=== PATIENT | male | born 1940 | race Caucasian/White ===

== ENCOUNTER → 2016-05-29 | Outpatient (CLI) | payer MEDICARE, BC ==
[~2016-05-29] MED LIST: AMLO5TAB2 PO; ASPI1TAB PO; ATEN25TA PO; COSO1SOL3 OS; IBUP200C PO; LISI-538 PO; OMEP20CA3 PO; SIMV20TA2 PO; TRAV04OPD OS; ZYRT10TA2 PO
[2016-05-29 10:58] LABS: MEAN CORPUSCULAR HEMOGLOBIN 27.8 pg (27.0-33.0); MEAN CORPUSCULAR HGB CONC 31.8 g/dl (32.0-36.5); MEAN CORPUSCULAR VOLUME 87.5 fl (80.0-96.0); RED CELL DISTRIBUTION WIDTH 14.1 % (11.5-14.5); WHITE BLOOD COUNT 8.9 K/mm3 (4.0-10.0)
[2016-05-29 11:05] LABS: INR 0.92
--- NOTE | 2016-05-29 11:09 | ECGEPIP ---
Stationary ECG Study [facility] Test Date: 2016-05-29 Pat Name: KESHAWN MEDINA Department: Room: - Gender: M Lending Manager: : 1940 Requested By: Calista Parker Order Number: [id number] Reading MD: Aiyana Ruiz Measurements Intervals [place] Rate: 57 P: 54 MS: 213 QRS: -2 QRSD: 92 T: 56 QT: 394 QTc: 384 Interpretive Statements SINUS BRADYCARDIA WITH FIRST DEGREE AV BLOCK SEPTAL MYOCARDIAL INFARCTION, OF INDETERMINATE AGE ANT ST ELEV 2ND TO RECENT INJURY, ANEURYSM OR OTHER NO PRIOR Electronically Signed On 05-29-2016 11:08:55 EST by Aiyana Ruiz
[2016-05-29 11:30] LABS: ALBUMIN 3.7 GM/DL (3.2-5.2); ALBUMIN/GLOBULIN RATIO 0.7 (1.00-1.93); BILIRUBIN,TOTAL 0.5 MG/DL (0.2-1.0); CALCIUM LEVEL 9.4 MG/DL (8.8-10.2); CREATININE FOR GFR 1.27 MG/DL (0.70-1.30); GLOMERULAR FILTRATION RATE 58.4 (>42); POTASSIUM SERUM 4.6 MEQ/L (3.5-5.1)
--- NOTE | 2016-05-29 12:02 | REP ---
Chest two views HISTORY: Hypertension Comparison: None Linear densities are present in the lower lobes consistent with atelectasis or scar. The heart is normal in size. The pulmonary vasculature is normal in appearance. The bony structure is intact. IMPRESSION: Bibasilar atelectasis or scar. Signed by Celestino Hudson MD 05/29/2016 11:53 A
== END ==
LOC: M ADMPAT 09:07
PROVIDERS: ATTEND Orthopaedic Surgery
DX: Z01.818 Encounter for other preprocedural examination (principal); M17.12 Unilateral primary osteoarthritis, left knee; I10 Essential (primary) hypertension; K21.9 Gastro-esophageal reflux disease without esophagitis; E78.00 Pure hypercholesterolemia, unspecified

== ENCOUNTER 2016-06-15 05:45 | Inpatient (IN) | payer MEDICARE, BC ==
[2016-05-29 10:35] VITALS: BP 144/84
--- NOTE | 2016-06-05 10:22 | HPE ---
DATE OF ADMISSION: 06/15/2016 ADMITTING DIAGNOSIS: Left knee pain and stiffness. HISTORY: This is a pleasant 76-year-old male patient with progressively worsening left knee pain and stiffness. He has failed to improve with conservative management. He has pain with weightbearing activities and activities of daily living and also bothers his sleeping. He has tried conservative management to include injections with failure to have any significant improvement. He has elected for surgery for his continued symptoms. He has consented for a left total knee arthroplasty. X-rays of his knee notable for end-stage degenerative changes of the left knee [id number] in the medial compartment. ALLERGIES: No known drug allergies. CURRENT MEDICATIONS: - Motrin 200 mg as needed (He will discontinue that 7 days prior to surgery.) - aspirin 81 mg one tablet as needed once per day (He will discontinue that also 5-7 days prior to surgery.) - Travatan 0.004% eyedrops (He will bring that to the hospital.) - that is one drop in his left eye once per day - Cosopt 23.3/6.8 one drop two times a day in each eye - Prilosec 20 mg one tablet once per day - Zocor 20 mg one tablet at bedtime - amlodipine 5 mg one tablet once per day - Lisinopril 20 mg one tablet once per day - atenolol 25 mg one tablet every day MEDICAL CONDITIONS: Include osteoarthritis of the left knee, hypertension, elevated cholesterol, gastric reflux disease. SURGICAL HISTORY: He had no prior surgeries. FAMILY HISTORY: Noncontributory. SOCIAL HISTORY: He does continue to smoke. He is again reminded to stop smoking. He has alcohol occasionally. He is retired. REVIEW OF SYSTEMS: Denies fever or chills. Denies chest pain, shortness breath, or cough. Denies difficulty breathing. Denies abdominal pain. Denies nausea or vomiting. Notes persistent pain in his left knee with weightbearing activities. PHYSICAL EXAMINATION: Today, reveals a well-nourished, well-developed, alert male patient. He walks with a limping gait. He favors his left side. Examination of the left knee reveals skin to be intact. There is irritability on knee range of motion on examination. Patella grind is positive. There is well-healed prior surgical scars. He is able to appreciate light touch. There is a well-perfused left lower extremity. There is a notable flexion contracture on examination. His neck is supple without adenopathy or jugular venous distention (JVD). Lungs are clear to auscultation without rales or wheeze. Heart: Regular rate and rhythm. Abdomen: Bowel sounds are present. Current vital signs: Weight 219 pounds, height 5.9, temperature 97.9, pulse 72, respirations 18, blood pressure 154/78. IMPRESSION: Symptomatic osteoarthritis of his left knee. LABORATORY DATA: Includes: His urinalysis notable for 1+ protein, 1+ blood, otherwise unremarkable. Urine culture is negative. Nasal and sinus culture is normal jarret. Protime 12.5, INR 0.92. Sedimentation rate is 17, WBC count 8.9, hemoglobin 13.9, hematocrit 43.7, glucose 94, BUN 22, creatinine 1.27. Sodium 141, potassium 4.6. PLAN: He is consented for a left total knee arthroplasty by Dr. Moreno.
[~2016-06-15] VITALS: Ht 177.8 cm; Wt 105.5 kg
[2016-06-15] VITALS (7 sets, daily range): BP systolic 150–180; BP diastolic 70–89
[2016-06-15] MEDS ORDERED: ACETAMINOPHEN 500 MG TAB PO ONE (06:00)
[2016-06-15] MEDS ORDERED: LIDOCAINE 1% MDV 20ML VIAL SC ONE (06:00)
[2016-06-15] MEDS ORDERED: LR 1,000 ML IV SCH ×3 (06:00→10:30)
[2016-06-15] MEDS ORDERED: fentaNYL 100 MCG/2 ML INJECTION (J3010) As Ordered ONE ×3 (06:43→07:13)
[2016-06-15] MEDS ORDERED: MIDAZOLAM INJ 2 MG/2 ML VIAL (J2250) As Ordered ONE ×2 (06:43→06:56)
[2016-06-15] MEDS ORDERED: PROPOFOL 200 MG/20 ML VIAL As Ordered ONE (06:56)
[2016-06-15] MEDS ORDERED: ONDANSETRON 4MG/2ML VIAL (J2405) As Ordered ONE (06:57)
[2016-06-15] MEDS ORDERED: LIDOCAINE 2% INJ 100 MG/5 ML SDV (FOR ANES.) As Ordered ONE (06:57)
[2016-06-15] MEDS ORDERED: ROPIvacaine 0.5% 30 ML INJECTION (J2795) As Ordered ONE (07:12)
[2016-06-15] MEDS ORDERED: EPINEPHrine INJ 1 MG/ML 1ML VIAL/AMP As Ordered ONE (07:13)
[2016-06-15] MEDS ORDERED: TRANEXAMIC ACID 100 MG/ML 10ML VIAL As Ordered ONE (07:13)
[2016-06-15] MEDS ORDERED: BUPIVACAINE HCL 0.5% 10 ML VIAL As Ordered ONE (07:13)
[2016-06-15] MEDS ORDERED: ceFAZolin 1GM INJ (J0690) As Ordered ONE (07:13)
[2016-06-15] MEDS: MIDAZOLAM INJ 2 MG/2 ML VIAL (J2250) IV PRN ×2 (07:21→07:26)
[2016-06-15] MEDS ORDERED: fentaNYL 100 MCG/2 ML INJECTION (J3010) IV PRN ×2 (07:45→10:30)
[2016-06-15] MEDS ORDERED: PHENYLephrine HCL 500 MCG/5 ML (100MCG/ML) SYRINGE (J2370) As Ordered ONE (07:59)
[2016-06-15] MEDS ORDERED: ePHEDrine SULFATE 25 MG/5 ML(5MG/ML) SYRINGE As Ordered ONE (07:59)
[2016-06-15] MEDS ORDERED: LISINOPRIL 20 MG TAB PO SCH (09:00)
[2016-06-15] MEDS ORDERED: NALBUPHINE HCL 10 MG/ML AMP (J2300) IV PRN (10:30)
[2016-06-15] MEDS ORDERED: PATIENT IS CURRENTLY ON AN ON-Q PAIN BUSTER PAIN RELIEF SYSTEM XX SCH (10:30)
[2016-06-15] MEDS ORDERED: ONDANSETRON 4MG/2ML VIAL (J2405) IV PRN ×2 (10:30)
[2016-06-15] MEDS ORDERED: NALOXONE INJ 0.4 MG/1 ML VIAL (J2310) IV PRN (10:30)
[2016-06-15] MEDS ORDERED: MORPHINE PCA 1MG/ML 100ML CADD IV PRN (10:30)
[2016-06-15] MEDS ORDERED: FLEET ENEMA PR PRN (10:30)
[2016-06-15] MEDS ORDERED: EPIDURAL/PCA KEYS XX PRN (10:30)
[2016-06-15] MEDS ORDERED: ACETAMINOPHEN TAB 650MG DOSE (2X325MG) PO PRN (10:30)
[2016-06-15] MEDS ORDERED: diphenhydrAMINE INJ 50MG/ML VIAL (J1200) IV PRN (10:30)
[2016-06-15] MEDS: LR 1,000 ML IV SCH ×2 (10:47→23:00)
[2016-06-15] MEDS: OMEPRAZOLE 20 MG CAP PO SCH (14:08)
[2016-06-15] MEDS ORDERED: WARFARIN SOD 5 MG TAB PO ONE (17:00)
--- NOTE | 2016-06-15 17:19 | RO ---
DATE OF PROCEDURE: 06/15/2016 PREPROCEDURE DIAGNOSIS: Left knee varus degenerative arthritis. POSTPROCEDURE DIAGNOSIS: Left knee varus degenerative arthritis. PROCEDURE: Left total knee arthroplasty using a size 4 cruciate sacrificing femoral component and a size 5 tibial tray with a 17 mm rotating platform polyethylene insert and a 35 mm polyethylene button. All components were cemented. Prosthesis was made by [employer]. It was a PFC knee. SURGEON: Dr. Calista Moreno DEFENSIVE FIRE CONTROL SYSTEMS OPERATOR: Mr. Ramírez Wilder ANESTHESIA: Spinal with left femoral nerve block and a postoperative PainBuster. COMPLICATIONS: None. ESTIMATED BLOOD LOSS: Less than 20 mL. SPECIMENS: Joint surface. DESCRIPTION OF PROCEDURE: Antibiotics were given intravenously preoperatively and successful left femoral nerve block and spinal anesthetic was induced. Tourniquet was placed on the left upper thigh and not inflated. The left lower extremity was prepped and draped in the usual sterile fashion. After appropriate time-out, the leg was elevated and the tourniquet was inflated to 250 mmHg for about 60 minutes. A longitudinal incision was made for a medial parapatellar approach to the knee. Bovie cautery used to coagulate crossing vessels. Subperiosteal dissection around the proximal and medial portion of the tibia medially was performed for a medial release given this marked varus deformity. Subperiosteal dissection around the proximal and lateral tibial plateau was performed for visualization, then we everted the patella and flexed the knee. Placed the drill down the center of the femoral canal and set the distal femoral cutting block at a 5 degree valgus cut at 10 mm resection level for a left knee. The block was pinned into position, distal femoral cut performed, AP sizing jig measured at about a 4.25 size, thus I pinned it in that position and used a #4 4-in-1 block. That was secured to the distal femur. Then, we performed the anterior, posterior, chamfer cuts, taking great care to protect the soft tissues. We then exposed the proximal tibia, used the extramedullary sandi to be sure we were parallel to the mechanical axis and then we pinned the block in position, taking 4 mm from the more involved medial tibial condyle. Secondary check of the lateral tibial condyle showed that we were taking 10 mm, which seemed right and symmetric. We then performed the osteotomy. We placed the lamina ticket sales supervisor laterally. We performed a completion medial meniscectomy and debridement of the posteromedial osteophytes. We then placed the lamina ticket sales supervisor medially and performed a completion lateral meniscectomy and debridement of the posterolateral osteophytes. The spacer blocks were then trialed, and he ended up with a fairly significant amount of gap to make up, but the flexion and extension gaps were rectangular and symmetric. A 17.5 insert fit the best. Thus, because it was that large and wide, I felt it best to convert to a posterior cruciate ligament (PCL) sacrificing knee. I then placed the box cut jig, pinned it in position, performed a box osteotomy, sized the proximal tibial for a #5 tray, which was pinned, reamed and broached. Then, we placed the thermal component and then the polyethylene, brought the knee into extension, and I trialed between a 7.5 and a 15 insert and the 7.5 gave us the best stability to varus, valgus stress testing, both in flexion and in extension and he still had full extension. I then extended the knee, everted the patella, performed a patellar osteotomy, sized for a 38 button and then the lug holes were drilled and the patellofemoral tracking was anatomic. I then removed all the trial components and then my commercial lines account assistant, Mr. Wilder, mixed the cement on the back table as I prepared the bony surfaces for cementing. He also was critical to the success of the procedure by helping to manipulate the knee, perform copious soft tissue retraction, helped to close the wound and helped to prepare the patient for surgery, amongst many other tasks. Once the cement had been mixed, and the bony surfaces were thoroughly dried, I cemented the tibial tray, removed the excess cement, and then we cemented the femoral component, removed the excess cement. Then, we placed the polyethylene, brought the knee into extension, then cemented the patellar button and held the position in extension until the cement had hardened completely. We copiously irrigated out the knee as we were waiting for the cement to harden and then placed the tranexamic acid within the knee joint, then began closing the arthrotomy after the cement had hardened. I closed the apex of the wound first with two #1 PDS sutures, then a #1 PDS was placed in the medial parapatellar area, then a running #1 Stratafix double-arm was used to close the capsule. After the capsule was closed, we brought the knee through a range of motion, and there was a distinct snapping at the posterolateral aspect and posterolateral corner of the knee. I did not think this was acceptable. It would probably be symptomatic for him postoperatively, so I opened the arthrotomy and then inspected the posterolateral corner and clearly was a remaining overhang of the lateral femoral condyle with an osteophyte which was snapping over the popliteal tendon. Thus, I rongeured this area away and then brought the knee through a range of motion again and this corrected the problem. I copiously irrigated the wound again, and closed the arthrotomy again in a similar fashion using the double-armed Stratafix and the single #1 PDS sutures, irrigated the deep subdermal tissues and closed the subdermal tissues with interrupted #2-0 PDS sutures, skin was closed with shelly. The tourniquet was released as we were closing the capsule initially, and as I brought the knee through a range of motion after the capsule had been closed, there was no longer any snapping. He was then transferred to the recovery room in stable condition. There were no intraoperative complications after a sterile dressing was applied.
[2016-06-15] MEDS: SIMVASTATIN 20 MG TAB PO SCH (19:59)
[2016-06-15] MEDS: amLODIPine 5 MG TAB PO SCH (19:59)
[2016-06-15] MEDS: COSOPT OCUMETER PLUS 10ML (DORZOLAMIDE/TIMOLOL) OS SCH (19:59)
[2016-06-15] MEDS: LATANOPROST 0.005% OPHTH SOLN 2.5 ML OS SCH (19:59)
[2016-06-16 02:00] VITALS: BP 148/76
[2016-06-16 06:00] VITALS: BP 160/80
[2016-06-16] MEDS ORDERED: ONDANSETRON 4 MG TAB (S0181) PO PRN (06:45)
[2016-06-16] MEDS ORDERED: PERCOCET 5MG/325MG TAB PO PRN (06:45)
[2016-06-16 07:06] LABS: MEAN CORPUSCULAR HEMOGLOBIN 27.7 pg (27.0-33.0); MEAN CORPUSCULAR HGB CONC 32.3 g/dl (32.0-36.5); MEAN CORPUSCULAR VOLUME 85.7 fl (80.0-96.0); RED CELL DISTRIBUTION WIDTH 14.3 % (11.5-14.5)
[2016-06-16 07:07] LABS: INR 1.13
[2016-06-16] MEDS: MIRALAX *UNIT DOSE* 17GM PACKET PO SCH (09:29)
[2016-06-16] MEDS: MOM 30ML SUSPENSION UDC PO SCH (09:29)
[2016-06-16] MEDS: OMEPRAZOLE 20 MG CAP PO SCH (09:29)
[2016-06-16] MEDS: COSOPT OCUMETER PLUS 10ML (DORZOLAMIDE/TIMOLOL) OS SCH ×2 (09:29→19:55)
[2016-06-16] MEDS: amLODIPine 5 MG TAB PO SCH ×2 (09:30→19:56)
[2016-06-16] MEDS: ATENOLOL 25 MG TAB PO SCH (09:30)
[2016-06-16] MEDS: LISINOPRIL 20 MG TAB PO SCH ×2 (09:30→19:56)
[2016-06-16] MEDS: SENOKOT S TAB PO SCH ×2 (09:30→19:56)
[2016-06-16] MEDS: PERCOCET 5MG/325MG TAB PO PRN ×3 (09:31→18:17)
--- NOTE | 2016-06-16 11:04 | REP ---
Clinical: Status post knee replacement. Technique AP and cross-table lateral views. Findings: The patient is status post left knee replacement with normal positioning and appearance to the femoral and tibial components. Overlying postsurgical changes appreciated. Impression: Status post left knee replacement. Signed by Jose Garcia MD 06/16/2016 10:57 A
--- NOTE | 2016-06-16 12:27 | IPNPDOC ---
Subjective Date Seen The patient was seen on 06/15/16. Subjective Chief Complaint/HPI The patient is a 76-year-old male admitted with a reason for visit of Arthritis Left Knee. Events since last encounter no complaints now, no nausea or vomiting ,no chest pain or shortness of breath. no abdominal pain Objective Physical Examination General Exam: Positive: Alert, No Acute Distress Eye Exam: Positive: Conjunctiva & lids normal, EOMI, PERRLA, Negative: Sclera icteric ENT Exam: Positive: Atraumatic, Mucous membr. moist/pink, Pharynx Normal Neck Exam: Positive: Supple, Negative: JVD, thyromegaly Chest Exam: Positive: Clear to auscultation, Normal air movement Heart Exam: Positive: Normal S1, Normal S2, Rate Normal, Regular Rhythm, Negative: Murmurs, Rubs Abdomen Exam: Positive: Normal bowel sounds, Soft, Negative: Hepatospenomegaly, Tenderness Extremity Exam: Positive: Normal pulses, Negative: Clubbing, Cyanosis, Edema Skin Exam: Positive: Nl turgor and temperature, Negative: Breakdown, Rash Assessment /Plan Problems (1) Status post total left knee replacement Status: Acute Problem Text: s/p elective surgery for advanced osteoarthritis. pain control and dvt prophylaxis as per ortho protocol. (2) Hypertension Status: Chronic Problem Text: continue home medications with hold parameters. will increase dose of amlodipine today and hold lisinopril for today . will restart lisinopril tomorrow and then reduced dose of amlodipine again. (3) Hyperlipidemia Status: Chronic Problem Text: continue statin (4) GERD (gastroesophageal reflux disease) Status: Chronic Problem Text: continue PPI Plan/VTE VTE Prophylaxis Ordered?: Yes VS, I&O, 24H, Fishbone Vital Signs/I&O Vital Signs Date Time Temp Pulse Resp B/P Pulse Ox O2 Delivery O2 Flow Rate FiO2 06/15/16 11:35 97.1 56 18 176/66 94 Nasal Cannula 2 DAVIDE CORONEL MD Jun 15, 2016 13:02
[2016-06-16 12:28] VITALS: BP 184/89
[2016-06-16 13:10] LABS: ANION GAP 10 MEQ/L (8-16); BLOOD UREA NITROGEN 25 MG/DL (7-18); CALCIUM LEVEL 9.5 MG/DL (8.8-10.2); CARBON DIOXIDE LEVEL 28 MEQ/L (21-32); CHLORIDE LEVEL 101 MEQ/L (98-107); CREATININE FOR GFR 1.17 MG/DL (0.70-1.30); GLOMERULAR FILTRATION RATE > 60.0 (>42); GLUCOSE, FASTING 124 MG/DL (83-110); POTASSIUM SERUM 4.6 MEQ/L (3.5-5.1); SODIUM LEVEL 139 MEQ/L (136-145)
[2016-06-16 14:00] VITALS: BP 176/79
[2016-06-16 17:00] VITALS: BP 158/76
[2016-06-16] MEDS ORDERED: WARFARIN SOD 5 MG TAB PO ONE (17:00)
[2016-06-16] MEDS: LATANOPROST 0.005% OPHTH SOLN 2.5 ML OS SCH (19:55)
[2016-06-16] MEDS: SIMVASTATIN 20 MG TAB PO SCH (19:56)
[2016-06-16 22:00] VITALS: BP 159/72
[2016-06-17] MEDS: PERCOCET 5MG/325MG TAB PO PRN (05:02)
[2016-06-17 05:48] LABS: MEAN CORPUSCULAR HEMOGLOBIN 27.5 pg (27.0-33.0); MEAN CORPUSCULAR HGB CONC 31.7 g/dl (32.0-36.5); MEAN CORPUSCULAR VOLUME 86.7 fl (80.0-96.0); RED CELL DISTRIBUTION WIDTH 14.6 % (11.5-14.5); WHITE BLOOD COUNT 13.3 K/mm3 (4.0-10.0)
[2016-06-17 05:57] LABS: INR 1.25
[2016-06-17 06:00] VITALS: BP 162/72
[2016-06-17] MEDS ORDERED: COUM2.5T11 PO (06:50)
[2016-06-17] MEDS ORDERED: PERC5TAB6 PO (06:50)
[2016-06-17] MEDS: MIRALAX *UNIT DOSE* 17GM PACKET PO SCH (08:10)
[2016-06-17] MEDS: amLODIPine 5 MG TAB PO SCH (08:11)
[2016-06-17] MEDS: SENOKOT S TAB PO SCH (08:11)
[2016-06-17] MEDS: MOM 30ML SUSPENSION UDC PO SCH (08:11)
[2016-06-17] MEDS: LISINOPRIL 20 MG TAB PO SCH (08:11)
[2016-06-17 08:12] VITALS: BP 162/72
[2016-06-17] MEDS: ATENOLOL 25 MG TAB PO SCH (08:12)
[2016-06-17] MEDS ORDERED: MAGNESIUM CITRATE 300 ML BTL PO ONE ×2 (08:15)
[2016-06-17] MEDS ORDERED: MAGNESIUM CITRATE 300 ML BTL PO PRN (08:15)
[2016-06-17] MEDS: COSOPT OCUMETER PLUS 10ML (DORZOLAMIDE/TIMOLOL) OS SCH (08:30)
[2016-06-17] MEDS ORDERED: WARFARIN SOD 7.5 MG TAB PO SCH (17:00)
[2016-06-17] MEDS ORDERED: OMEPRAZOLE 20 MG CAP PO SCH (21:00)
--- NOTE | 2016-06-20 17:44 | DSES ---
DATE OF ADMISSION: 06/15/2016 DATE OF DISCHARGE: 06/17/2016 ADMISSION DIAGNOSIS: Osteoarthritis left knee. OTHER DIAGNOSES: 1. Hypertension. 2. Elevated cholesterol. 3. Gastric reflux disease. DISCHARGE DIAGNOSIS: Osteoarthritis left knee status post left total knee arthroplasty. ATTENDING PHYSICIAN: Dr. Keith Moreno. OPERATION PERFORMED: Left total knee arthroplasty. HISTORY: This is a pleasant 76-year-old male patient with progressively worsening left knee pain and stiffness. He failed to improve with conservative management. He was admitted for elective knee replacement on the left side. HOSPITAL COURSE: The patient was admitted on the day of surgery and underwent a left total knee arthroplasty which was uneventful. He did well in the postoperative period and his hospital course was without complications. He was up with physical therapy per their protocol and his pain was controlled. On the day of discharge, he was doing well, weightbearing as tolerated on his left lower extremity. He will move his left knee to prevent stiffness. He will use adjusted-dose Coumadin and thromboembolic-deterrent s(LISA) stockings for 30 days postoperatively for deep vein thrombosis (DVT) prophylaxis. He will resume his preoperative medications and diet. He was given instructions to include, but not limited to, wound monitoring and activity limitations. He will use oral pain medications for pain control. He will followup in our office in 10-14 days for surgical followup. Please refer to the medical record for further details.
== END 2016-06-17 12:15 | disposition home health service (06) | DRG 470 ==
LOC: M OR 05:45 → M MS5PR 11:55
PROVIDERS: ADMIT Orthopaedic Surgery; ATTEND Orthopaedic Surgery
PROC: 0SRD0J9 Replacement of Left Knee Joint with Synthetic Substitute, Cemented, Open Approach (ICD-10-PCS; principal; 2016-06-15 07:30)
DX: M17.12 Unilateral primary osteoarthritis, left knee (principal); Z79.899 Other long term (current) drug therapy; Z79.82 Long term (current) use of aspirin; K21.9 Gastro-esophageal reflux disease without esophagitis; I10 Essential (primary) hypertension; E78.5 Hyperlipidemia, unspecified

== ENCOUNTER → 2016-06-19 | Outpatient (REF) | payer MEDICARE, BC ==
[~2016-06-19] MED LIST changes: +COUM2.5T11 PO; +PERC5TAB6 PO
[2016-06-19 12:41] LABS: INR 1.53
== END ==
LOC: M SHH 11:47 → M LAB REF 11:47
PROVIDERS: ATTEND Nurse Practitioner Family
DX: Z51.81 Encounter for therapeutic drug level monitoring (principal); M17.12 Unilateral primary osteoarthritis, left knee; Z79.01 Long term (current) use of anticoagulants

== ENCOUNTER → 2016-06-22 | Outpatient (REF) | payer MEDICARE, BC ==
[2016-06-22 12:33] LABS: INR 1.97
== END ==
LOC: M LAB REF 11:51
PROVIDERS: ATTEND Orthopaedic Surgery
DX: Z51.81 Encounter for therapeutic drug level monitoring (principal); Z79.01 Long term (current) use of anticoagulants; M17.12 Unilateral primary osteoarthritis, left knee

== ENCOUNTER → 2016-06-26 | Outpatient (REF) | payer MEDICARE, BC ==
[2016-06-26 13:00] LABS: INR 2.06
== END ==
LOC: M SHH 12:42
PROVIDERS: ATTEND Nurse Practitioner Family
DX: Z51.81 Encounter for therapeutic drug level monitoring (principal); Z79.01 Long term (current) use of anticoagulants; M17.12 Unilateral primary osteoarthritis, left knee

== ENCOUNTER → 2016-06-29 | Outpatient (REF) | payer MEDICARE, BC ==
[2016-06-29 12:41] LABS: INR 1.66
== END ==
LOC: M SHH 12:27
PROVIDERS: ATTEND Nurse Practitioner Family
DX: Z51.81 Encounter for therapeutic drug level monitoring (principal); Z79.01 Long term (current) use of anticoagulants; M17.12 Unilateral primary osteoarthritis, left knee

== ENCOUNTER → 2016-07-03 | Outpatient (REF) | payer MEDICARE, BC | LOC: M SHH 12:27 | PROVIDERS: ATTEND Nurse Practitioner Family | DX: Z51.81 Encounter for therapeutic drug level monitoring (principal); Z79.01 Long term (current) use of anticoagulants; M17.12 Unilateral primary osteoarthritis, left knee ==

== ENCOUNTER → 2016-07-06 | Outpatient (REF) | payer MEDICARE, BC ==
[2016-07-06 15:00] LABS: INR 1.56
== END ==
LOC: M LAB REF 14:25
PROVIDERS: ATTEND Orthopaedic Surgery
DX: Z51.81 Encounter for therapeutic drug level monitoring (principal); Z79.01 Long term (current) use of anticoagulants; M17.12 Unilateral primary osteoarthritis, left knee

== ENCOUNTER → 2016-07-10 | Outpatient (REF) | payer MEDICARE, BC ==
[2016-07-10 13:55] LABS: INR 1.79
== END ==
LOC: M SHH 13:13
PROVIDERS: ATTEND Nurse Practitioner Family
DX: Z51.81 Encounter for therapeutic drug level monitoring (principal); Z79.01 Long term (current) use of anticoagulants; M17.12 Unilateral primary osteoarthritis, left knee

== ENCOUNTER → 2016-07-13 | Outpatient (REF) | payer MEDICARE, BC ==
[2016-07-13 12:29] LABS: INR 1.53
== END ==
LOC: M SHH 12:02
PROVIDERS: ATTEND Nurse Practitioner Family
DX: Z51.81 Encounter for therapeutic drug level monitoring (principal); Z79.01 Long term (current) use of anticoagulants

== ENCOUNTER → 2017-01-15 | Outpatient (REF) | payer MEDICARE, BC ==
[~2017-01-15] MED LIST changes: -COUM2.5T11 PO; +COUM2.5T17 PO; -IBUP200C PO; +IBUP200C10 PO; +PERC5TAB12 PO; -PERC5TAB6 PO
[2017-01-15 16:54] LABS: BASO # 0.1 10^3/uL (0.0-0.2); BASO % 0.6 % (0.0-1.0); EOS # 0.4 10^3/uL (0.0-0.50); EOS % 4.1 % (0.0-3.0); IMMATURE GRANULOCYTE % 0.3 % (0-0); LYMPH # 2.1 10^3/uL (1.5-4.5); LYMPH % 23.9 % (24.0-44.0); MEAN CORPUSCULAR HEMOGLOBIN 26.2 pg (27.0-33.0); MEAN CORPUSCULAR VOLUME 84.5 fl (80.0-96.0); MONO # 0.9 10^3/uL (0.0-0.8); MONO % 9.9 % (0.0-5.0); NEUTROPHILS # 5.3 10^3/uL (1.8-7.7); NEUTROPHILS % 61.2 % (36.0-66.0); PLATELET COUNT, AUTOMATED 341 10^3/uL (150-450); RED CELL DISTRIBUTION WIDTH 15.9 % (11.5-14.5); WHITE BLOOD COUNT 8.6 10^3/uL (4.0-10.0)
[2017-01-15 18:49] LABS: ALBUMIN 3.6 GM/DL (3.2-5.2); ALBUMIN/GLOBULIN RATIO 0.84 (1.00-1.93); ALKALINE PHOSPHATASE 124 U/L (45-117); ALT/SGPT 42 U/L (12-78); ANION GAP 6 MEQ/L (8-16); AST/SGOT 30 U/L (15-37); BILIRUBIN,TOTAL 0.3 MG/DL (0.2-1.0); BLOOD UREA NITROGEN 28 MG/DL (7-18); CALCIUM LEVEL 9.6 MG/DL (8.8-10.2); CARBON DIOXIDE LEVEL 28 MEQ/L (21-32); CHLORIDE LEVEL 106 MEQ/L (98-107); CHOLESTEROL LEVEL 129 MG/DL (<200); CREATININE FOR GFR 1.23 MG/DL (0.70-1.30); GLOMERULAR FILTRATION RATE > 60.0 (>42); GLUCOSE, FASTING 89 MG/DL (83-110); SODIUM LEVEL 140 MEQ/L (136-145); TOTAL PROTEIN 7.9 GM/DL (6.4-8.2); TRIGLYCERIDES LEVEL 187 MG/DL (<150)
[2017-01-15 19:09] LABS: POTASSIUM SERUM 5.2 MEQ/L (3.5-5.1)
== END ==
LOC: M LAB REF 16:23
PROVIDERS: ATTEND Family Medicine
DX: Z00.00 Encounter for general adult medical examination without abnormal findings (principal); E78.4 Other hyperlipidemia; I11.9 Hypertensive heart disease without heart failure; F17.200 Nicotine dependence, unspecified, uncomplicated

== ENCOUNTER → 2017-03-01 | Outpatient (CLI) | payer MEDICARE, BC ==
--- NOTE | 2017-03-07 08:24 | RADONC ---
RADIATION ONCOLOGY FOLLOWUP NOTE DATE: 03/01/2017 CHART NUMBER: [id number] DIAGNOSIS: Prostate cancer. STAGE: IIA, [id number] ECOG PERFORMANCE STATUS: 0 FOLLOWUP NOTE: Mr. 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 The patient presents today reporting that he is doing quite well with no complaints at this time related to his radiation therapy or disease. He is having no urinary or bowel difficulties and no bone pain. REVIEW OF SYSTEMS: The patient's review of systems is noncontributory. Denies nausea, vomiting, fevers, chills, night sweats, diplopia, headaches, anxiety or depression, anorexia, weight loss, visual disturbances, chest pain, urinary or bowel difficulties, bone pain, or neurological problems. PHYSICAL EXAMINATION: The patient is a well-developed, well-nourished male in no acute distress. HEENT exam is normocephalic, atraumatic. Extraocular movements are intact. There is no palpable cervical, supraclavicular, infraclavicular, axillary, or inguinal lymphadenopathy present. Lungs are clear to auscultation and percussion. Heart has a regular rate and rhythm. Abdomen is benign with no hepatosplenomegaly, masses, or tenderness. Rectal examination reveals a normal anal sphincter tone. His prostate is smooth with no evidence of nodularity. Skeletal examination reveals no tenderness to pressure or percussion of the bony skeleton. Extremities reveal no clubbing, cyanosis, or edema. Neurologic exam is grossly intact, as is the remainder of the physical examination. ASSESSMENT: The patient is clinically DOMINIC at this time and will be seen by us again in 1 year for further followup. He will also continue to be followed by his other physicians as well. cc: MD Tejinder Guo MD Nancy Girard, DO
== END ==
LOC: M ONCR 13:00
PROVIDERS: ATTEND Radiology Radiation Oncology
DX: Z08 Encounter for follow-up examination after completed treatment for malignant neoplasm (principal); Z85.46 Personal history of malignant neoplasm of prostate

== ENCOUNTER → 2017-09-03 | Outpatient (CLI) | payer MEDICARE, BC ==
[~2017-09-03] MED LIST changes: -AMLO5TAB2 PO; -ASPI1TAB PO; -ATEN25TA PO; -COSO1SOL3 OS; -COUM2.5T17 PO; +E-Z-GAS II EFFERVESCENT PACKET (SODIUM BICARB./CITRIC ACID/SIMETHICONE) As Ordered; +E-Z-HD 98% w/w 340GM SUSP BTL As Ordered; +E-Z-PAQUE 96% w/w SUSP 176GM BTL As Ordered; -IBUP200C10 PO; -LISI-538 PO; -OMEP20CA3 PO; -PERC5TAB12 PO; -SIMV20TA2 PO; -TRAV04OPD OS; -ZYRT10TA2 PO
== END ==
LOC: M RAD 10:28
DX: K21.9 Gastro-esophageal reflux disease without esophagitis (principal)
CPT/HCPCS: 74241

== ENCOUNTER → 2018-02-27 | Outpatient (CLI) | payer MEDICARE, BC | LOC: M ONCR 13:45 | DX: C61 Malignant neoplasm of prostate (principal) | CPT/HCPCS: G0463 ==

== ENCOUNTER → 2018-04-12 | Outpatient (CLI) | payer MEDICARE, BC ==
[~2018-04-12] MED LIST changes: +AMLO5TAB6 PO; +ASPI1TAB PO; +ATEN25TA PO; +COSO1SOL3 OS; +COUM2.5T17 PO; -E-Z-GAS II EFFERVESCENT PACKET (SODIUM BICARB./CITRIC ACID/SIMETHICONE) As Ordered; -E-Z-HD 98% w/w 340GM SUSP BTL As Ordered; -E-Z-PAQUE 96% w/w SUSP 176GM BTL As Ordered; +IBUP200C25 PO; +LISI-538 PO; +OMEP20CA3 PO; +PERC5TAB12 PO; +PROHANCE 279.3MG/ML 15ML VIAL (A9576) As Ordered ONE; +PROHANCE 279.3MG/ML 5ML VIAL (A9576) As Ordered ONE; +SIMV20TA2 PO; +TRAV04OPD OS; +ZYRT10CA5 PO
== END ==
LOC: M RAD 14:40
PROVIDERS: ATTEND Ophthalmology
DX: H47.011 Ischemic optic neuropathy, right eye (principal)
CPT/HCPCS: A9576 ×2

== ENCOUNTER → 2018-05-02 | Outpatient (CLI) | payer MEDICARE, BC | LOC: M RAD 17:27 | PROVIDERS: ATTEND Ophthalmology | DX: H47.011 Ischemic optic neuropathy, right eye (principal) ==

== ENCOUNTER → 2019-02-19 | Outpatient (CLI) | payer MEDICARE, BC ==
[~2019-02-19] MED LIST changes: -ASPI1TAB PO; +ASPI81TA26 PO; -OMEP20CA3 PO; +OMEP20CA4 PO; -PROHANCE 279.3MG/ML 15ML VIAL (A9576) As Ordered ONE; -PROHANCE 279.3MG/ML 5ML VIAL (A9576) As Ordered ONE
== END ==
LOC: M PLARAD 14:23
PROVIDERS: ATTEND Internal Medicine Pulmonary Disease
DX: Z53.9 Procedure and treatment not carried out, unspecified reason (principal)

== ENCOUNTER → 2019-02-26 | Outpatient (CLI) | payer MEDICARE, BC ==
[~2019-02-26] MED LIST changes: -SIMV20TA2 PO; +SIMV20TA22 PO
--- NOTE | 2019-02-26 14:13 | RADONC ---
RADIATION ONCOLOGY FOLLOWUP NOTE DATE OF SERVICE: 02/26/2019 DATE of : 1940 CHART NUMBER: [id number] Mr. Lin is an 78-year-old gentleman, who has a diagnosis of prostate CA stage IIA, [id number], moderate, the Rachel score of 7 (3+4). He completed radiation therapy in 2012. INTERVAL HISTORY: He has been doing well without any complaints. He had a recent low-dose CT, which showed 1 cm nodule in the lung, and a PET/CT was recommended, however, he was not able to tolerate a PET/CT, and he is scheduled full-dose CT in 2 months. SYSTEMIC REVIEW: He has no dysuria, hematuria. He has nocturia twice and some incontinence of urination. He denies any bone pain. He denies any bowel problems, respiratory symptoms or bone pains ECOG performance status is 0. PHYSICAL EXAMINATIONS:He is well developed and nourished, not in apparent distress. There was no bony tenderness over the spine and rib cages. There is no palpable lymphadenopathy. Lungs are clear. There is no swelling, cyanosis, or edema of the extremities. ASSESSMENT AND RECOMMENDATION: 78-year-old gentleman who had a diagnosis of stage IIA prostate CA, Rachel score of 7 (3+4). He is status post radiation therapy, which was completed in 2002. He has been doing well without any complaints. He hasno significant urinary problems, other than chronic incontinence. He had a recent low dose CT, which showed pulmonary noduleand recommended PET-CT however he was not able to tolerate the PET/CT, and the full-dose CT is scheduled in 2 months. Last PSA was on 02/11/2019.was0.35. A year ago, the PSA on 02/15/2018 was 0.28. He was advised continuous followup care with the physicians involved, and he is discharged from our care; however, he can contact us when it is necessary. JOE
== END ==
LOC: M ONCR 12:48
PROVIDERS: ATTEND Radiology Radiation Oncology
DX: C61 Malignant neoplasm of prostate (principal); Z92.3 Personal history of irradiation

== ENCOUNTER 2020-11-29 09:47 | Emergency (ER) | payer MEDICARE, BC ==
[~2020-11-29] VITALS: Ht 177.8 cm; Wt 95.8 kg
[~2020-11-29 09:47] MED LIST changes: +AMLO1TAB24 PO; -AMLO5TAB6 PO; -LISI-538 PO; +LISI20TA33 PO; +OMEP1CAP73 PO; -OMEP20CA4 PO
[2020-11-29] MEDS ORDERED: METF-839 PO (10:00)
[2020-11-29] MEDS ORDERED: NORV5TAB PO (10:00)
[2020-11-29] MEDS ORDERED: ASPI81CH33 PO (10:00)
[2020-11-29] MEDS ORDERED: STIO1AER IN (10:00)
[2020-11-29] MEDS ORDERED: BASA100I SC (10:00)
[2020-11-29] MEDS ORDERED: FURO40TA2 PO (10:00)
[2020-11-29] MEDS ORDERED: COSO1SOL3 OS (10:00)
[2020-11-29] MEDS ORDERED: LIDOCAINE 2% 5ML JELLY UROJET TOP ONE (10:20)
[2020-11-29] MEDS ORDERED: CEFD1CAP8 (10:40)
[2020-11-29 13:21] VITALS: BP 137/63
== END 2020-11-29 13:25 | disposition home or self-care (01) ==
LOC: M ED 09:47
DX: R33.9 Retention of urine, unspecified (principal); T83.098A Other mechanical complication of other urinary catheter, initial encounter; D64.9 Anemia, unspecified; J44.9 Chronic obstructive pulmonary disease, unspecified; E11.9 Type 2 diabetes mellitus without complications; F17.200 Nicotine dependence, unspecified, uncomplicated; I10 Essential (primary) hypertension; Z79.4 Long term (current) use of insulin; Z79.82 Long term (current) use of aspirin; Z79.899 Other long term (current) drug therapy

== ENCOUNTER → 2020-12-20 | Outpatient (REF) | payer MEDICARE, BC ==
[~2020-12-20] MED LIST changes: +ASPI81CH33 PO; +BACTDSTA PO; +BASA100I SC; +CEFD1CAP8; +FURO40TA2 PO; +HYDR-3713 PO; +METF-839 PO; +NORV5TAB PO; +STIO1AER IN
[2020-12-20 13:39] LABS: APPEARANCE, URINE CLOUDY (CLEAR); BACTERIA, URINE AUTO NEGATIVE (NEGATIVE); BILIRUBIN, URINE AUTO NEGATIVE (NEGATIVE); BLOOD, URINE BLOOD 3+ (NEGATIVE); COLOR, URINE YELLOW (YELLOW); GLUCOSE, URINE (UA) AUTO NEGATIVE (NEGATIVE); KETONE, URINE AUTO NEGATIVE (NEGATIVE); LEUKOCYTE ESTERASE, URINE AUTO 3+ (NEGATIVE); MUCUS, URINE SMALL (NEGATIVE); NITRITE, URINE AUTO NEGATIVE (NEGATIVE); PROTEIN, URINE AUTO 2+ mg/dL (NEGATIVE); RBC, URINE AUTO TNTC /HPF (0-3); SPECIFIC GRAVITY URINE AUTO 1.009 (1.002-1.035); SQUAMOUS EPITHELIAL CELL UR AU 3 /HPF (0-6); UROBILINOGEN, URINE AUTO 0.2 mg/dL (0.0-2.0); WBC, URINE AUTO TNTC /HPF (0-3)
== END ==
LOC: M SMT 12:51
PROVIDERS: ATTEND Urology
DX: R33.9 Retention of urine, unspecified (principal)

== ENCOUNTER → 2020-12-22 | Outpatient (CLI) | payer MEDICARE, BC ==
[~2020-12-22] MED LIST changes: -BACTDSTA PO; -HYDR-3713 PO
== END ==
LOC: M LABSMTC 11:41
PROVIDERS: ATTEND Anesthesiology
DX: Z01.818 Encounter for other preprocedural examination (principal); Z11.52 Encounter for screening for COVID-19

== ENCOUNTER 2020-12-27 11:03 | Day surgery (SDC) | payer MEDICARE, BC ==
[~2020-12-27] VITALS: Ht 177.8 cm; Wt 88.9 kg
[~2020-12-27 11:03] MED LIST changes: +LIDOCAINE 1% MDV 20ML VIAL SQ PRN
[2020-12-27] MEDS ORDERED: CIPROFLOXACIN 400 MG in IV 1 EA IV ONE (11:40)
[2020-12-27] MEDS ORDERED: LR 1,000 ML IV ONE (11:40)
[2020-12-27] MEDS ORDERED: dexameTHASONE 4 MG/ML 1ML VIAL (J1100 PER 1MG) As Ordered ONE (12:54)
[2020-12-27] MEDS ORDERED: ROCURONIUM BROMIDE 50 MG/5 ML VIAL As Ordered ONE (12:54)
[2020-12-27] MEDS ORDERED: ONDANSETRON 4MG/2ML VIAL As Ordered ONE (12:54)
[2020-12-27] MEDS ORDERED: propofoL 200 MG/20 ML VIAL As Ordered ONE (12:54)
[2020-12-27] MEDS ORDERED: MIDAZOLAM INJ 2MG/2ML VIAL (J2250 PER 1MG) As Ordered ONE (12:54)
[2020-12-27] MEDS ORDERED: LIDOCAINE 2% 100MG/5ML SDV (FOR ANES.) As Ordered ONE (12:54)
[2020-12-27] MEDS ORDERED: fentaNYL 250 MCG/5 ML INJECTION (J3010) As Ordered ONE (12:54)
[2020-12-27] MEDS ORDERED: CIPROFLOXACIN/D5W 400 MG/200 ML BAG (J0744) As Ordered ONE (14:16)
[2020-12-27] MEDS ORDERED: PHENYLephrine 500MCG 5ML (100MCG/ML) SYRINGE As Ordered ONE (14:34)
[2020-12-27] MEDS ORDERED: ePHEDrine SULFATE 25 MG/5 ML(5MG/ML) SYRINGE As Ordered ONE (14:34)
[2020-12-27] MEDS ORDERED: ACETAMINOPHEN 1000MG 100ML IV BTL (OFIRMEV) (J0131 PER 10MG) As Ordered ONE (14:48)
[2020-12-27] MEDS ORDERED: SUGAMMADEX SODIUM 500 MG/5 ML VIAL (BRIDION) As Ordered ONE (15:07)
[2020-12-27] MEDS ORDERED: BACTDSTA PO (15:28)
[2020-12-27] MEDS ORDERED: HYDR-3713 PO (15:28)
[2020-12-27] MEDS ORDERED: ONDANSETRON 4MG/2ML VIAL IV PRN (15:50)
[2020-12-27] MEDS ORDERED: fentaNYL 100 MCG/2 ML INJECTION (J3010) IV PRN (15:50)
[2020-12-27] MEDS ORDERED: oxyCODONE 5MG TAB PO PRN (15:50)
[2020-12-27] MEDS ORDERED: LR 1,000 ML IV SCH ×2 (15:50)
[2020-12-27] MEDS ORDERED: HYDROMORPHONE HCL 0.5 MG/ 0.5 ML SYRINGE (J1170 PER 1) IV PRN (15:50)
[2020-12-27 17:25] VITALS: BP 151/66
--- NOTE | 2020-12-28 08:12 | ROOPDOC ---
[facility] Report Of Operation Report of Operation DATE OF PROCEDURE: 12/28/20 PREPROCEDURE DIAGNOSES: [Bladder tumor]. POSTPROCEDURE DIAGNOSES: [Bladder tumors]. PROCEDURE PERFORMED: [TURBT greater than 5 cm, urethral catheter placement]. SURGEON: [Ann Marie Mock], HEEL BOOM OPERATOR: [None], ANESTHESIA: [General]. ESTIMATED BLOOD LOSS: Approximately [minimal] mL. COMPLICATIONS: [None]. REMARKS: [80-year-old white male. Cystoscopy demonstrated a bladder tumor. Surgery was arranged to remove the tumor. Informed consent was obtained. Risks were discussed such as infection, bleeding, pain, scarring, injury to urinary tract including bladder perforation, recurrence of tumor and others. No guarantees were given.]. FINDINGS: SPECIMENS REMOVED: [Tumor near left UO and tumor left wall] PROCEDURE NOTE: . DESCRIPTION OF PROCEDURE: [I met with the patient before surgery. Questions answered. Patient wished to proceed. Patient brought to procedure room. Supine position at first. General anesthesia secured without difficulty. Then in dorsal lithotomy position. Well-padded. Catheter with which patient presented was removed. Prepping and draping were performed in the usual sterile fashion. Surgery done under coverage of an IV antibiotic. Timeout performed. Resectoscope sheath advanced into bladder with help from its obturator after w hich the resectoscope was assembled. Bladder thoroughly inspected. Much tumor was noted. Biggest tumor near the left ureteral orifice. Several tumors on the left wall. All papillary in appearance. All tumors were resected. Deep bites were taken. In some areas fat was noted. Specimen from the tumor near the left ureteral orifice was collected and sent off. All remaining specimen was sent off together. Hemostasis secured with a loop and cautery. Tumor near the left ureteral orifice was greater than 5 cm itself. At least 3 or 4 other tumors on the left wall. Left ureteral orifice was not injured. After securing hemostasis and irrigating the bladder free of any debris, a 22 Occitan three-way catheter was placed. The third port was plugged. 10 cc in the balloon. Patient has phimosis. Prostate benign feeling on rectal exam. Patient left the room in satisfactory condition. Of note, patient presented with a urethral catheter. It was initially placed because of gross hematuria with clots. Patient discharged home today with a catheter. Once no longer needed from a status post TURBT standpoint, it will be removed. Home. I talked with patient and significant other after surgery.]. KESHAWN MOCK MD Dec 28, 2020 08:11
== END 2020-12-27 17:32 | disposition home or self-care (01) ==
LOC: M SDC 11:03
PROVIDERS: ATTEND Urology
DX: D49.4 Neoplasm of unspecified behavior of bladder (principal); R31.0 Gross hematuria; R33.9 Retention of urine, unspecified; I10 Essential (primary) hypertension; E11.9 Type 2 diabetes mellitus without complications; E78.5 Hyperlipidemia, unspecified; J44.9 Chronic obstructive pulmonary disease, unspecified; D64.9 Anemia, unspecified; F17.218 Nicotine dependence, cigarettes, with other nicotine-induced disorders; K21.9 Gastro-esophageal reflux disease without esophagitis; Z92.3 Personal history of irradiation; Z85.46 Personal history of malignant neoplasm of prostate; Z79.82 Long term (current) use of aspirin; Z79.899 Other long term (current) drug therapy
CPT/HCPCS: 52240; 88307; J0131; J0744; J1100; J2250; J2370; J2405; J3010

== ENCOUNTER → 2021-06-22 | Outpatient (CLI) | payer BC, MEDICARE ==
[~2021-06-22] MED LIST changes: +BACTDSTA PO; -CEFD1CAP8; +CEFD300C41; +HYDR-3713 PO; -LIDOCAINE 1% MDV 20ML VIAL SQ PRN
== END ==
LOC: M LABSMTC 10:36
PROVIDERS: ATTEND Anesthesiology
DX: Z11.52 Encounter for screening for COVID-19 (principal); Z20.822 Contact with and (suspected) exposure to COVID-19

== ENCOUNTER 2021-06-27 06:40 | Day surgery (SDC) | payer MEDICARE ==
[~2021-06-27] VITALS: Ht 177.8 cm; Wt 85.3 kg
[~2021-06-27 06:40] MED LIST changes: +LIDOCAINE 1% MDV 20ML VIAL SQ PRN; +LR 1,000 ML IV ONE
[2021-06-27] MEDS ORDERED: CIPROFLOXACIN 400 MG in IV 1 EA IV ONE (07:30)
[2021-06-27] MEDS ORDERED: IRON27TA2 PO (07:35)
[2021-06-27] MEDS ORDERED: METOCLOPRAMIDE INJ 10MG/2ML VIAL (J2765 PER 1) As Ordered ONE (08:07)
[2021-06-27] MEDS ORDERED: dexameTHASONE 4 MG/ML 1ML VIAL (J1100 PER 1MG) As Ordered ONE (08:07)
[2021-06-27] MEDS ORDERED: ACETAMINOPHEN 1000MG 100ML IV BTL (OFIRMEV) (J0131 PER 10MG) As Ordered ONE (08:07)
[2021-06-27] MEDS ORDERED: ONDANSETRON 4MG/2ML VIAL As Ordered ONE (08:07)
[2021-06-27] MEDS ORDERED: propofoL 200 MG/20 ML VIAL As Ordered ONE (08:07)
[2021-06-27] MEDS ORDERED: fentaNYL 100 MCG/2 ML INJECTION As Ordered ONE (08:07)
[2021-06-27] MEDS ORDERED: LIDOCAINE 2% 100MG/5ML SDV (FOR ANES.) As Ordered ONE (08:07)
[2021-06-27] MEDS ORDERED: mitoMYcin 40MG VIAL *UROLOGY* (J9280 PER 5MG) INTRAVESIC ONE (09:00)
[2021-06-27] MEDS ORDERED: HYDR-3713 PO (09:44)
[2021-06-27] MEDS ORDERED: OXYB5TAB10 PO (09:44)
[2021-06-27] MEDS ORDERED: BACTDSTA PO (09:44)
[2021-06-27] MEDS ORDERED: MEPERIDINE INJ 25 MG/ML VIAL (J2175) IV PRN (10:05)
[2021-06-27] MEDS ORDERED: PROMETHAZINE 25MG/ML 1ML VIAL IV PRN (10:05)
[2021-06-27] MEDS ORDERED: hydrALAZINE 20MG/ML 1ML VIAL (J0360 PER 20MG) IV PRN (10:05)
[2021-06-27] MEDS ORDERED: HumaLOG INSULIN (NovoLOG) PER UNIT SC ONE (10:05)
[2021-06-27] MEDS ORDERED: HYDROMORPHONE HCL 0.5 MG/ 0.5 ML SYRINGE (J1170 PER 1) IV PRN (10:05)
[2021-06-27] MEDS ORDERED: ONDANSETRON 4MG/2ML VIAL IV PRN (10:05)
[2021-06-27] MEDS ORDERED: ALBUTEROL SULFATE 2.5 MG/0.5 ML INH NEB SOLN INH ONE (10:05)
[2021-06-27] MEDS ORDERED: oxyCODONE 5MG TAB PO PRN (10:05)
[2021-06-27] MEDS ORDERED: LABETALOL 100MG/20ML VIAL IV PRN (10:05)
[2021-06-27 11:04] VITALS: BP 171/88
== END 2021-06-27 11:05 | disposition home or self-care (01) ==
LOC: M SDC 06:40
PROVIDERS: ATTEND Urology
DX: C67.9 Malignant neoplasm of bladder, unspecified (principal); N47.1 Phimosis; R91.1 Solitary pulmonary nodule; I25.10 Atherosclerotic heart disease of native coronary artery without angina pectoris; I11.9 Hypertensive heart disease without heart failure; N18.31 Chronic kidney disease, stage 3a; Z79.899 Other long term (current) drug therapy; Z79.84 Long term (current) use of oral hypoglycemic drugs; E11.9 Type 2 diabetes mellitus without complications; Z79.4 Long term (current) use of insulin; Z85.46 Personal history of malignant neoplasm of prostate; Z72.0 Tobacco use; F17.218 Nicotine dependence, cigarettes, with other nicotine-induced disorders; D72.829 Elevated white blood cell count, unspecified; K22.70 Barrett's esophagus without dysplasia; J44.9 Chronic obstructive pulmonary disease, unspecified; Z79.51 Long term (current) use of inhaled steroids; Z92.3 Personal history of irradiation
CPT/HCPCS: 51720; 52240; 54161; 88305; J0131; J0744; J1100; J2405; J2765; J3010

== ENCOUNTER → 2022-01-03 | Outpatient (REF) | payer MEDICARE, BC ==
[~2022-01-03] MED LIST changes: +IRON27TA2 PO; -LIDOCAINE 1% MDV 20ML VIAL SQ PRN; -LR 1,000 ML IV ONE; +OXYB5TAB10 PO
[2022-01-03 16:51] LABS: BASO # 0.1 10^3/uL (0.0-0.2); BASO % 0.7 % (0.0-1.0); EOS # 0.4 10^3/uL (0.0-0.5); EOS % 3.9 % (0.0-3.0); HEMATOCRIT 30.3 % (42.0-52.0); HEMOGLOBIN 9.3 g/dl (13.5-17.5); LYMPH # 2.8 10^3/uL (1.5-5.0); MEAN CORPUSCULAR HEMOGLOBIN 29.2 pg (27.0-33.0); MEAN CORPUSCULAR HGB CONC 30.7 g/dl (32.0-36.5); MONO % 10.1 % (2.0-8.0); NEUTROPHILS # 5.3 10^3/uL (1.5-8.5); NEUTROPHILS % 55.9 % (36.0-66.0); PLATELET COUNT, AUTOMATED 296 10^3/uL (150-450); RED BLOOD COUNT 3.19 10^6/uL (4.30-6.10); WHITE BLOOD COUNT 9.5 10^3/uL (4.0-10.0)
[2022-01-03 17:28] LABS: ALBUMIN 2.5 GM/DL (3.2-5.2); BILIRUBIN,TOTAL 0.2 MG/DL (0.2-1.0); CREATININE FOR GFR 1.46 MG/DL (0.70-1.30); GLOMERULAR FILTRATION RATE 49.1 (>35); POTASSIUM SERUM 4.7 MEQ/L (3.5-5.1); TOTAL PROTEIN 6.3 GM/DL (6.4-8.2)
== END ==
LOC: M LAB REF 16:22
PROVIDERS: ATTEND Family Medicine
DX: I13.0 Hypertensive heart and chronic kidney disease with heart failure and stage 1 through stage 4 chronic kidney disease, or unspecified chronic kidney disease (principal); I50.9 Heart failure, unspecified; N18.9 Chronic kidney disease, unspecified

== ENCOUNTER → 2022-02-22 | Outpatient (REF) | payer MEDICARE, BC ==
[2022-02-22 17:39] LABS: APPEARANCE, URINE MANUAL CLEAR (CLEAR); BILIRUBIN, URINE MANUAL NEGATIVE (NEGATIVE); BLOOD URINE MANUAL NEGATIVE (NEGATIVE); COLOR, URINE MANUAL YELLOW (YELLOW); GLUCOSE, URINE (UA) MANUAL NEGATIVE (NEGATIVE); KETONE, URINE MANUAL NEGATIVE (NEGATIVE); LEUKOCYTE ESTERASE, URINE MAN NEGATIVE (NEGATIVE); NITRITE, URINE MANUAL NEGATIVE (NEGATIVE); PROTEIN, URINE MANUAL 2+ mg/dL (NEGATIVE); UROBILINOGEN, URINE MANUAL NORMAL (NORMAL)
[2022-02-22 18:00] LABS: BACTERIA, URINE NONE SEEN; SQUAMOUS EPITHELIAL CELL URINE SMALL AMOUNT /hpf (SMALL AMT); WBC, URINE 0-1 /hpf (0-3)
[2022-02-22 18:01] LABS: HYALINE CAST, URINE NONE SEEN /lpf (0-1)
== END ==
LOC: M SMT 17:12
PROVIDERS: ATTEND Urology
DX: Z85.51 Personal history of malignant neoplasm of bladder (principal)

== ENCOUNTER → 2022-05-03 | Outpatient (REF) | payer MEDICARE, BC ==
[2022-05-03 18:46] LABS: IRON (FE) 22 UG/DL (65-175); PERCENT SATURATION 5.8 % (19.7-50.0); TOTAL IRON BINDING CAPACITY 381 UG/DL (250-425)
[2022-05-03 18:49] LABS: FERRITIN 13.6 NG/ML (10.5-307.3); FOLATE > 24.0 NG/ML (>5.4)
[2022-05-03 18:51] LABS: VITAMIN B12 LEVEL 412 PG/ML (211-911)
[2022-05-08 18:09] LABS: IMMUNOTYPING SERUM IGA SO 544 mg/dL (61-437); IMMUNOTYPING SERUM IGM SO 65 mg/dL (15-143)
== END ==
LOC: M LAB REF 17:24
PROVIDERS: ATTEND Internal Medicine Nephrology
DX: N18.32 Chronic kidney disease, stage 3b (principal); D64.9 Anemia, unspecified

== ENCOUNTER → 2022-05-17 | Outpatient (REF) | payer MEDICARE, BC | LOC: M LAB REF 16:50 | PROVIDERS: ATTEND Internal Medicine Nephrology | DX: N18.32 Chronic kidney disease, stage 3b (principal) ==

== ENCOUNTER → 2022-05-22 | Outpatient (REF) | payer MEDICARE, BC ==
[2022-05-22 13:36] LABS: APPEARANCE, URINE HAZY (CLEAR); BACTERIA, URINE AUTO 1+ (NEGATIVE); BILIRUBIN, URINE AUTO NEGATIVE (NEGATIVE); BLOOD, URINE BLOOD 1+ (NEGATIVE); COLOR, URINE YELLOW (YELLOW); GLUCOSE, URINE (UA) AUTO 1+ mg/dL (NEGATIVE); KETONE, URINE AUTO NEGATIVE (NEGATIVE); LEUKOCYTE ESTERASE, URINE AUTO 1+ (NEGATIVE); NITRITE, URINE AUTO NEGATIVE (NEGATIVE); PROTEIN, URINE AUTO 2+ mg/dL (NEGATIVE); RBC, URINE AUTO 3 /HPF (0-3); SPECIFIC GRAVITY URINE AUTO 1.014 (1.002-1.035); SQUAMOUS EPITHELIAL CELL UR AU 0 /HPF (0-6); UROBILINOGEN, URINE AUTO 0.2 mg/dL (0.0-2.0); WBC, URINE AUTO 11 /HPF (0-3)
== END ==
LOC: M SMT 12:48
PROVIDERS: ATTEND Urology
DX: Z85.51 Personal history of malignant neoplasm of bladder (principal)

== ENCOUNTER → 2022-06-14 | Outpatient (REF) | payer MEDICARE, BC | LOC: M SFHCDERM 10:00 | PROVIDERS: ATTEND Physician Assistant | DX: R21 Rash and other nonspecific skin eruption (principal) ==

== ENCOUNTER → 2022-11-28 | Outpatient (REF) | payer MEDICARE, BC ==
[~2022-11-28] MED LIST changes: -COSO1SOL3 OS; +DORZ10DR10 OS
[2022-11-28 18:41] LABS: APPEARANCE, URINE HAZY (CLEAR); BACTERIA, URINE AUTO NEGATIVE (NEGATIVE); BILIRUBIN, URINE AUTO NEGATIVE (NEGATIVE); BLOOD, URINE BLOOD 1+ (NEGATIVE); COLOR, URINE YELLOW (YELLOW); GLUCOSE, URINE (UA) AUTO 1+ mg/dL (NEGATIVE); KETONE, URINE AUTO NEGATIVE (NEGATIVE); LEUKOCYTE ESTERASE, URINE AUTO 2+ (NEGATIVE); NITRITE, URINE AUTO NEGATIVE (NEGATIVE); PROTEIN, URINE AUTO 3+ mg/dL (NEGATIVE); RBC, URINE AUTO 5 /HPF (0-3); SPECIFIC GRAVITY URINE AUTO 1.012 (1.002-1.035); SQUAMOUS EPITHELIAL CELL UR AU 0 /HPF (0-6); UROBILINOGEN, URINE AUTO 0.2 mg/dL (0.0-2.0); WBC, URINE AUTO 47 /HPF (0-3)
== END ==
LOC: M SMT 17:03
PROVIDERS: ATTEND Urology
DX: Z85.51 Personal history of malignant neoplasm of bladder (principal); Z79.899 Other long term (current) drug therapy

== ENCOUNTER → 2023-05-29 | Outpatient (REF) | payer MEDICARE, BC ==
[~2023-05-29] MED LIST changes: +CEFD1CAP9; -CEFD300C41; -OXYB5TAB10 PO; +OXYB5TAB14 PO
[2023-05-29 16:40] LABS: APPEARANCE, URINE HAZY (CLEAR); BACTERIA, URINE AUTO NEGATIVE (NEGATIVE); BILIRUBIN, URINE AUTO NEGATIVE (NEGATIVE); BLOOD, URINE BLOOD NEGATIVE (NEGATIVE); COLOR, URINE YELLOW (YELLOW); GLUCOSE, URINE (UA) AUTO 1+ mg/dL (NEGATIVE); KETONE, URINE AUTO NEGATIVE (NEGATIVE); LEUKOCYTE ESTERASE, URINE AUTO 1+ (NEGATIVE); NITRITE, URINE AUTO NEGATIVE (NEGATIVE); PROTEIN, URINE AUTO 3+ mg/dL (NEGATIVE); RBC, URINE AUTO 3 /HPF (0-3); SPECIFIC GRAVITY URINE AUTO 1.013 (1.002-1.035); SQUAMOUS EPITHELIAL CELL UR AU 0 /HPF (0-6); UROBILINOGEN, URINE AUTO 0.2 mg/dL (0.0-2.0); WBC, URINE AUTO 10 /HPF (0-3)
== END ==
LOC: M SMT 15:17
PROVIDERS: ATTEND Urology
DX: Z85.51 Personal history of malignant neoplasm of bladder (principal)

== ENCOUNTER 2023-10-25 16:33 | Emergency (ER) | payer BC, MEDICARE ==
[~2023-10-25] VITALS: Ht 177.8 cm; Wt 96.8 kg
[2023-10-25] MEDS ORDERED: CLOP75TA2 (16:45)
[2023-10-25 17:23] LABS: BASO % 0.4 % (0.0-1.0); EOS # 0.3 10^3/uL (0.0-0.5); EOS % 3.5 % (0.0-3.0); HEMOGLOBIN 6.7 g/dl (13.5-17.5); LYMPH # 1.3 10^3/uL (1.5-5.0); LYMPH % 17.2 % (24.0-44.0); MEAN CORPUSCULAR HEMOGLOBIN 29.5 pg (27.0-33.0); MEAN CORPUSCULAR HGB CONC 30.6 g/dl (32.0-36.5); MEAN CORPUSCULAR VOLUME 96.5 fl (80.0-96.0); MONO # 0.9 10^3/uL (0.0-0.8); MONO % 11.7 % (2.0-8.0); NEUTROPHILS # 5.2 10^3/uL (1.5-8.5); NEUTROPHILS % 66.6 % (36.0-66.0); PLATELET COUNT, AUTOMATED 336 10^3/uL (150-450); RED BLOOD COUNT 2.27 10^6/uL (4.30-6.10); WHITE BLOOD COUNT 7.8 10^3/uL (4.0-10.0)
[2023-10-25 17:24] LABS: HEMATOCRIT 21.9 % (42.0-52.0)
[2023-10-25 17:37] LABS: INR 1.09; PARTIAL THROMBOPLASTIN TIME 27.6 SECONDS (24.8-34.2); PROTHROMBIN TIME 13.8 SECONDS (12.5-14.5)
[2023-10-25 17:56] LABS: BILIRUBIN,DIRECT 0.1 MG/DL (<0.4); BILIRUBIN,TOTAL 0.3 MG/DL (0.3-1.2); CALCIUM LEVEL 9.3 MG/DL (8.3-10.6); CREATININE FOR GFR 2.85 MG/DL (0.70-1.30); GLOMERULAR FILTRATION RATE 22.6 (>35); POTASSIUM SERUM 4.3 MMOL/L (3.5-5.1); TOTAL PROTEIN 6.8 G/DL (5.7-8.2)
[2023-10-25 18:38] LABS: CK-MB VALUE MASS 1.9 NG/ML (<3.6)
[2023-10-25 18:39] LABS: MB/CK RELATIVE INDEX 3.11 (< OR =4)
[2023-10-25 19:03] VITALS: BP 178/77; TEMP 97.5; O2SAT 96
[2023-10-25 19:20] VITALS: BP 188/73; TEMP 97.5; O2SAT 96
== END 2023-10-25 19:28 | disposition short-term general hospital (02) ==
LOC: M ED 16:33
DX: K92.2 Gastrointestinal hemorrhage, unspecified (principal); I51.7 Cardiomegaly; I49.3 Ventricular premature depolarization; E11.9 Type 2 diabetes mellitus without complications; I10 Essential (primary) hypertension; J44.9 Chronic obstructive pulmonary disease, unspecified; F17.200 Nicotine dependence, unspecified, uncomplicated; Z86.79 Personal history of other diseases of the circulatory system; Z79.4 Long term (current) use of insulin; Z79.899 Other long term (current) drug therapy
CPT/HCPCS: 36415; 36430; 71045; 80048; 80076; 82550; 82553; 84484; 85025; 85610; 85730; 86850; 86900; 86901; 86920; 93005; 93041; 99285; P9016

== ENCOUNTER → 2023-11-02 | Outpatient (REF) | payer MEDICARE ==
[~2023-11-02] MED LIST changes: +CLOP75TA2
[2023-11-02 19:01] LABS: FERRITIN 37.6 NG/ML (10.5-307.3)
== END ==
LOC: M LAB REF 17:02
PROVIDERS: ATTEND Internal Medicine Nephrology
DX: D64.9 Anemia, unspecified (principal)

== ENCOUNTER → 2023-12-09 | Outpatient (CLI) | payer MEDICARE | LOC: M LAB 11:53 | PROVIDERS: ATTEND Internal Medicine Nephrology | DX: D64.9 Anemia, unspecified (principal) ==

== ENCOUNTER 2023-12-10 07:43 | Outpatient (CLI) | payer MEDICARE ==
[2023-12-10] VITALS (7 sets, daily range): BP systolic 150–188; BP diastolic 66–82; TEMP 96–98; O2SAT 95–98
[2023-12-10] MEDS ORDERED: NS 250 ML IV ONE (08:30)
[2023-12-10] MEDS: FUROSEMIDE 40MG/4ML VIAL IV ONE (11:28)
== END 2023-12-10 14:30 ==
LOC: M INFU 07:43
PROVIDERS: ATTEND Internal Medicine Nephrology
DX: D64.9 Anemia, unspecified (principal)
CPT/HCPCS: 36430; 96374; J1940; P9016

== ENCOUNTER 2023-12-17 11:11 | Outpatient (CLI) | payer MEDICARE, BC ==
[~2023-12-17] VITALS: Ht 177.8 cm; Wt 95.5 kg
[~2023-12-17 11:11] MED LIST changes: +ALBUTEROL SULFATE 2.5MG/0.5ML INH NEB SOLN INH PRN; +EPINEPHrine INJ 1 MG/ML 1ML AMP IM PRN; +diphenhydrAMINE 50MG/ML VIAL IV PRN; +methylPREDNISolone 125MG 2ML VIAL IV PRN
[2023-12-17] MEDS ORDERED: NS 1,000 ML IV SCH (11:30)
[2023-12-17] MEDS: FERRIC CARBOXYMALTOSE INJ 750 MG in NS 250 ML (>50kg) IV ONE (11:49)
[2023-12-17 11:52] VITALS: BP 178/82; O2SAT 98
[2023-12-17 12:57] VITALS: BP 159/71; O2SAT 98
== END 2023-12-17 13:00 ==
LOC: M INFU 11:11
PROVIDERS: ATTEND Internal Medicine Nephrology
DX: E61.1 Iron deficiency (principal)
CPT/HCPCS: 96365; J1439

== ENCOUNTER 2023-12-24 11:15 | Outpatient (CLI) | payer MEDICARE, BC ==
[~2023-12-24] VITALS: Ht 177.8 cm; Wt 95.5 kg
[2023-12-24 11:15] VITALS: BP 140/64; O2SAT 97
[2023-12-24] MEDS ORDERED: NS 1,000 ML IV SCH (11:30)
[2023-12-24] MEDS: FERRIC CARBOXYMALTOSE INJ 750 MG in NS 250 ML (>50kg) IV ONE (11:38)
[2023-12-24 13:55] VITALS: BP 154/70; O2SAT 100
== END 2023-12-24 12:55 ==
LOC: M INFU 11:15
PROVIDERS: ATTEND Internal Medicine Nephrology
DX: E61.1 Iron deficiency (principal)
CPT/HCPCS: 96365; J1439

== ENCOUNTER → 2024-01-29 | Outpatient (REF) | payer MEDICARE, BC ==
[~2024-01-29] MED LIST changes: -ALBUTEROL SULFATE 2.5MG/0.5ML INH NEB SOLN INH PRN; -EPINEPHrine INJ 1 MG/ML 1ML AMP IM PRN; -diphenhydrAMINE 50MG/ML VIAL IV PRN; -methylPREDNISolone 125MG 2ML VIAL IV PRN
[2024-01-29 19:10] LABS: PERCENT SATURATION 26.2 % (19.7-50.0)
[2024-01-29 19:11] LABS: FERRITIN 248.8 NG/ML (10.5-307.3)
== END ==
LOC: M LAB REF 17:29
PROVIDERS: ATTEND Internal Medicine Nephrology
DX: D64.9 Anemia, unspecified (principal)

== ENCOUNTER → 2024-02-20 | Outpatient (REF) | payer MEDICARE, BC ==
[2024-02-20 19:16] LABS: APPEARANCE, URINE CLEAR (CLEAR); BACTERIA, URINE AUTO NEGATIVE (NEGATIVE); BILIRUBIN, URINE AUTO NEGATIVE (NEGATIVE); BLOOD, URINE BLOOD NEGATIVE (NEGATIVE); COLOR, URINE STRAW (YELLOW); GLUCOSE, URINE (UA) AUTO 1+ mg/dL (NEGATIVE); KETONE, URINE AUTO NEGATIVE (NEGATIVE); LEUKOCYTE ESTERASE, URINE AUTO NEGATIVE (NEGATIVE); NITRITE, URINE AUTO NEGATIVE (NEGATIVE); PROTEIN, URINE AUTO 2+ mg/dL (NEGATIVE); RBC, URINE AUTO 2 /HPF (0-3); SQUAMOUS EPITHELIAL CELL UR AU 0 /HPF (0-6); UROBILINOGEN, URINE AUTO 0.2 mg/dL (0.0-2.0); WBC, URINE AUTO 0 /HPF (0-3)
== END ==
LOC: M SMT 17:30
PROVIDERS: ATTEND Urology
DX: Z85.51 Personal history of malignant neoplasm of bladder (principal)

== ENCOUNTER → 2024-08-12 | Outpatient (REF) | payer MEDICARE, BC ==
[2024-08-12 17:19] LABS: APPEARANCE, URINE CLEAR (CLEAR); BACTERIA, URINE AUTO NEGATIVE (NEGATIVE); BILIRUBIN, URINE AUTO NEGATIVE (NEGATIVE); BLOOD, URINE BLOOD NEGATIVE (NEGATIVE); COLOR, URINE YELLOW (YELLOW); GLUCOSE, URINE (UA) AUTO 1+ mg/dL (NEGATIVE); KETONE, URINE AUTO NEGATIVE (NEGATIVE); LEUKOCYTE ESTERASE, URINE AUTO 1+ (NEGATIVE); NITRITE, URINE AUTO NEGATIVE (NEGATIVE); PROTEIN, URINE AUTO 2+ mg/dL (NEGATIVE); RBC, URINE AUTO 0 /HPF (0-3); SPECIFIC GRAVITY URINE AUTO 1.013 (1.002-1.035); SQUAMOUS EPITHELIAL CELL UR AU 0 /HPF (0-6); UROBILINOGEN, URINE AUTO 0.2 mg/dL (0.0-2.0); WBC, URINE AUTO 6 /HPF (0-3)
== END ==
LOC: M SMT 16:54
PROVIDERS: ATTEND Urology
DX: Z85.51 Personal history of malignant neoplasm of bladder (principal)

== ENCOUNTER 2024-12-28 17:35 | Inpatient (IN) | payer MEDICARE, BC ==
[~2024-12-28] VITALS: Ht 177.8 cm; Wt 80.4 kg
[~2024-12-28 17:35] MED LIST changes: -CLOP75TA2; +CLOP75TA2 PO
[2024-12-28 18:45] LABS: VENOUS BASE EXCESS -0.7 (-2.0-2.0); VENOUS HCO3 24.1 MMOL/L (23.0-27.0); VENOUS O2 SATURATION 93.8 % (60.0-80.0); VENOUS PARTIAL PRESSURE CO2 40.7 mmHg (38.0-50.0); VENOUS PARTIAL PRESSURE O2 74.8 mmHg (30.0-50.0); VENOUS PH 7.391 UNITS (7.330-7.430); VENOUS STANDARD HCO3 23.8 MMOL/L; VENOUS TOTAL CO2 25.4 MMOL/L (24.0-28.0)
[2024-12-28 18:50] LABS: BASO # 0.0 10^3/uL (0.0-0.2); BASO % 0.2 % (0.0-1.0); EOS # 0.1 10^3/uL (0.0-0.5); EOS % 1.1 % (0.0-3.0); LYMPH # 1.1 10^3/uL (1.5-5.0); LYMPH % 11.3 % (24.0-44.0); MONO # 0.9 10^3/uL (0.0-0.8); MONO % 9.5 % (2.0-8.0); NEUTROPHILS # 7.5 10^3/uL (1.5-8.5); NEUTROPHILS % 77.3 % (36.0-66.0); PLATELET COUNT, AUTOMATED 356 10^3/uL (150-450)
[2024-12-28 19:07] LABS: INR 1.05
[2024-12-28 19:37] LABS: KETONE, URINE AUTO RFX NEGATIVE (NEGATIVE); LEUKOCYTE ESTERASE UR AUTO RFX NEGATIVE (NEGATIVE); NITRITE, URINE AUTO RFX NEGATIVE (NEGATIVE); RBC, URINE AUTO RFX 2 /HPF (0-3); SQUAM EPITHELIAL CELL UR AURFX 0 /HPF (0-6); WBC, URINE AUTO RFX 4 /HPF (0-3)
[2024-12-28 19:45] LABS: ALT/SGPT 28.0 U/L (7.0-40); AST/SGOT 46.0 U/L (<34); C REACTIVE PROTEIN QUANTITATIV 12.32 MG/DL (<1.0); CALCIUM LEVEL 9.2 MG/DL (8.3-10.6); CARBON DIOXIDE LEVEL 24.0 MMOL/L (20-31); CHLORIDE LEVEL 99.0 MMOL/L (98-107); CK-MB VALUE MASS 3.0 NG/ML (<3.6); CPK CREATINE PHOSPHOKINASE 89.0 U/L (46-171); CREATININE FOR GFR 3.1 MG/DL (0.70-1.30); GLOMERULAR FILTRATION RATE 18.9 (>35); MAGNESIUM LEVEL 2.0 MG/DL (1.8-2.4); MB/CK RELATIVE INDEX 3.37 (< OR =4); PHOSPHORUS LEVEL 5.0 MG/DL (2.4-5.1); POTASSIUM SERUM 3.9 MMOL/L (3.5-5.1); SODIUM LEVEL 139.0 MMOL/L (136-145)
[2024-12-28 20:15] LABS: CK-MB VALUE MASS 2.5 NG/ML (<3.6)
[2024-12-28 20:16] LABS: CPK CREATINE PHOSPHOKINASE 61.0 U/L (46-171); MB/CK RELATIVE INDEX 4.09 (< OR =4)
[2024-12-28] MEDS ORDERED: PIPERACILLIN/TAZOBACTAM SOD 3.375 GM in DEXTROSE 5% (D5W) ADV/MINI-BAG 50 ML IV SCH (22:15)
[2024-12-28] MEDS: UNRESOLVED CLARIFICATION ENTRY XX STA (22:25)
[2024-12-28] MEDS: PIPERACILLIN/TAZOBACTAM SOD 2.25 GM in DEXTROSE 5% (D5W) ADV/MINI-BAG 50 ML IV SCH (23:28)
[2024-12-29] MEDS: INSULIN LISPRO (NovoLOG) PER UNIT SC SCH
[2024-12-29] MEDS ORDERED: GLUCAGON INJ 1 MG VIAL SC PRN (00:55)
[2024-12-29] MEDS ORDERED: DEXTROSE 50% 50 ML SYRINGE IV PRN (00:55)
[2024-12-29] MEDS ORDERED: GLUCOSE 4 GM CHEW PO PRN (00:55)
[2024-12-29 06:26] LABS: PLATELET COUNT, AUTOMATED 307 10^3/uL (150-450)
[2024-12-29 06:55] LABS: ALT/SGPT 22.0 U/L (7.0-40); AST/SGOT 27.0 U/L (<34); CALCIUM LEVEL 9.3 MG/DL (8.3-10.6); CARBON DIOXIDE LEVEL 25.0 MMOL/L (20-31); CHLORIDE LEVEL 101.0 MMOL/L (98-107); CREATININE FOR GFR 3.34 MG/DL (0.70-1.30); GLOMERULAR FILTRATION RATE 17.2 (>35); POTASSIUM SERUM 2.7 MMOL/L (3.5-5.1); SODIUM LEVEL 143.0 MMOL/L (136-145)
[2024-12-29] MEDS ORDERED: KCL 40MEQ in NS 1000ML 1,000 ML IV SCH (08:00)
[2024-12-29] MEDS ORDERED: OMEPRAZOLE 20MG CAP PO SCH (09:00)
[2024-12-29] MEDS: POTASSIUM CHLORIDE 10MEQ SR TABLET PO SCH (09:09)
[2024-12-29] MEDS: KCL 40MEQ in NS 1000ML 1,000 ML IV SCH (10:18)
[2024-12-29] MEDS ORDERED: FOLI1TAB11 PO (10:56)
[2024-12-29] MEDS ORDERED: PANT40TA29 PO (10:56)
[2024-12-29] MEDS ORDERED: TAMS-18 PO (10:56)
[2024-12-29] MEDS ORDERED: ISOS1TAB35 PO (10:56)
[2024-12-29] MEDS ORDERED: ATOR80TA59 PO (10:56)
[2024-12-29] MEDS ORDERED: FERR325T3 PO (10:56)
[2024-12-29] MEDS ORDERED: ALBU8.5H INH (10:56)
[2024-12-29] MEDS ORDERED: LANTINJ4 SC (10:56)
[2024-12-29] MEDS ORDERED: BUDE10.7 IH (10:56)
[2024-12-29] MEDS ORDERED: CARV3.12 PO (10:56)
[2024-12-29] MEDS ORDERED: HYDR-3490 PO (10:56)
[2024-12-29] MEDS ORDERED: HOME MED LIST COMPLETE! XX SCH (11:00)
[2024-12-29] MEDS: CLOPIDOGREL 75 MG TAB PO SCH (11:14)
[2024-12-29] MEDS: PANTOPRAZOLE 40MG TAB PO SCH (11:55)
[2024-12-29 19:21] LABS: CALCIUM LEVEL 9.3 MG/DL (8.3-10.6); CARBON DIOXIDE LEVEL 26.0 MMOL/L (20-31); CHLORIDE LEVEL 102.0 MMOL/L (98-107); CREATININE FOR GFR 3.51 MG/DL (0.70-1.30); GLOMERULAR FILTRATION RATE 16.3 (>35); POTASSIUM SERUM 3.3 MMOL/L (3.5-5.1); SODIUM LEVEL 146.0 MMOL/L (136-145)
[2024-12-29 20:16] LABS: MAGNESIUM LEVEL 2.2 MG/DL (1.8-2.4)
[2024-12-29] MEDS: POTASSIUM CHLORIDE 10MEQ SR TABLET PO ONE (23:49)
[2024-12-30] MEDS: D5W/LR 1,000 ML IV SCH (01:35)
[2024-12-30] MEDS: TIOTROPIUM BROM 2.5MCG/ACTUATION 4GM INH INH SCH (08:00)
[2024-12-30 09:24] LABS: PLATELET COUNT, AUTOMATED 354 10^3/uL (150-450)
[2024-12-30 09:52] LABS: ALT/SGPT 20.0 U/L (7.0-40); AST/SGOT 25.0 U/L (<34); CALCIUM LEVEL 9.2 MG/DL (8.3-10.6); CARBON DIOXIDE LEVEL 27.0 MMOL/L (20-31); CHLORIDE LEVEL 105.0 MMOL/L (98-107); CREATININE FOR GFR 3.16 MG/DL (0.70-1.30); GLOMERULAR FILTRATION RATE 18.4 (>35); POTASSIUM SERUM 3.3 MMOL/L (3.5-5.1); SODIUM LEVEL 145.0 MMOL/L (136-145)
[2024-12-30] MEDS ORDERED: GLUCOSE 4 GM CHEW PO PRN (10:50)
[2024-12-30] MEDS ORDERED: DEXTROSE 50% 50 ML SYRINGE IV PRN (10:50)
[2024-12-30] MEDS ORDERED: GLUCAGON INJ 1 MG VIAL SC PRN (10:50)
[2024-12-30] MEDS: FOLIC ACID 1 MG TAB PO SCH (12:45)
[2024-12-30] MEDS: PANTOPRAZOLE 40MG VIAL IV SCH (12:47)
[2024-12-30] MEDS: CLOPIDOGREL 75 MG TAB PO SCH (12:47)
[2024-12-30] MEDS: POTASSIUM CHLORIDE 10MEQ SR TABLET PO ONE (12:47)
[2024-12-30] MEDS: ISOSORBIDE MONONITRATE 30 MG XR TAB PO SCH (12:47)
[2024-12-30] MEDS: TAMSULOSIN 0.4 MG CAP PO SCH (12:47)
[2024-12-30] MEDS: INSULIN LISPRO (NovoLOG) PER UNIT SC SCH ×2 (16:20→21:00)
[2024-12-30] MEDS: KCL 20MEQ IN 0.45NS 1000ML 1,000 ML IV SCH (16:31)
[2024-12-30 17:05] VITALS: BP 148/57; TEMP 97.5; O2SAT 94
[2024-12-30] MEDS: SYMBICORT 160/4.5MCG INHALER 6GM INH SCH (19:43)
[2024-12-30 21:05] VITALS: BP 143/48; TEMP 97.5; O2SAT 96
[2024-12-30] MEDS: ATORVASTATIN 20 MG TAB PO SCH (22:36)
[2024-12-30] MEDS: FERROUS SULFATE 325 MG TAB PO SCH (22:36)
[2024-12-30] MEDS: HEPARIN SOD 5000 UNITS/ML 1 ML VIAL/SYRINGE SQ SCH (22:37)
[2024-12-30] MEDS: ACETAMINOPHEN 325 MG TAB PO PRN (22:37)
[2024-12-30] MEDS: LanTUS (INSULIN GLARGINE INJ) 1 UNITS/0.01 ML SC SCH (22:38)
[2024-12-31] VITALS: BP 120/59; TEMP 97.3; O2SAT 97
[2024-12-31 03:48] VITALS: BP 141/63; TEMP 97.3; O2SAT 98
[2024-12-31 06:32] LABS: PLATELET COUNT, AUTOMATED 318 10^3/uL (150-450)
[2024-12-31 06:59] LABS: C REACTIVE PROTEIN QUANTITATIV 7.04 MG/DL (<1.0)
[2024-12-31 07:36] LABS: ALT/SGPT 18.0 U/L (7.0-40); AST/SGOT 29.0 U/L (<34); CALCIUM LEVEL 8.8 MG/DL (8.3-10.6); CARBON DIOXIDE LEVEL 23.0 MMOL/L (20-31); CHLORIDE LEVEL 106.0 MMOL/L (98-107); CREATININE FOR GFR 2.65 MG/DL (0.70-1.30); GLOMERULAR FILTRATION RATE 22.8 (>35); POTASSIUM SERUM 3.5 MMOL/L (3.5-5.1); SODIUM LEVEL 142.0 MMOL/L (136-145)
[2024-12-31 08:00] VITALS: BP 121/57; TEMP 97.3; O2SAT 99
[2024-12-31 12:00] VITALS: BP 158/62; TEMP 97.5; O2SAT 95
[2024-12-31] MEDS: PIPERACILLIN/TAZOBACTAM SOD 2.25 GM in DEXTROSE 5% (D5W) ADV/MINI-BAG 50 ML IV SCH (13:21)
[2024-12-31 16:00] VITALS: BP 128/46; TEMP 97.2; O2SAT 97
[2024-12-31 20:46] VITALS: BP 107/47; TEMP 97.5; O2SAT 98
[2025-01-01] MEDS: RAMELTEON 8 MG TAB PO PRN (01:57)
[2025-01-01 04:31] VITALS: BP 146/54; TEMP 97.3; O2SAT 96
[2025-01-01 06:00] LABS: PLATELET COUNT, AUTOMATED 317 10^3/uL (150-450)
[2025-01-01 06:26] LABS: ALT/SGPT 18.0 U/L (7.0-40); AST/SGOT 27.0 U/L (<34); CALCIUM LEVEL 8.9 MG/DL (8.3-10.6); CARBON DIOXIDE LEVEL 24.0 MMOL/L (20-31); CHLORIDE LEVEL 110.0 MMOL/L (98-107); CREATININE FOR GFR 2.17 MG/DL (0.70-1.30); GLOMERULAR FILTRATION RATE 28.9 (>35); POTASSIUM SERUM 4.1 MMOL/L (3.5-5.1); SODIUM LEVEL 145.0 MMOL/L (136-145)
[2025-01-01 07:45] LABS: C REACTIVE PROTEIN QUANTITATIV 4.29 MG/DL (<1.0)
[2025-01-01 08:30] VITALS: BP 153/84; TEMP 97.5; O2SAT 97
[2025-01-01 12:00] VITALS: BP 114/59; TEMP 97.3; O2SAT 97
[2025-01-01 20:21] VITALS: BP 125/55; TEMP 97.5; O2SAT 96
[2025-01-02 00:10] VITALS: BP 138/60; TEMP 97.4; O2SAT 97
[2025-01-02 04:02] VITALS: BP 131/54; TEMP 97.3; O2SAT 97
[2025-01-02 06:54] LABS: PLATELET COUNT, AUTOMATED 334 10^3/uL (150-450)
[2025-01-02 07:18] LABS: ALT/SGPT 21.0 U/L (7.0-40); AST/SGOT 34.0 U/L (<34); CALCIUM LEVEL 9.3 MG/DL (8.3-10.6); CARBON DIOXIDE LEVEL 25.0 MMOL/L (20-31); CHLORIDE LEVEL 111.0 MMOL/L (98-107); CREATININE FOR GFR 1.91 MG/DL (0.70-1.30); GLOMERULAR FILTRATION RATE 33.7 (>35); POTASSIUM SERUM 4.5 MMOL/L (3.5-5.1); SODIUM LEVEL 146.0 MMOL/L (136-145)
[2025-01-02 08:00] VITALS: BP 136/67; TEMP 97.3; O2SAT 97
[2025-01-02 11:29] VITALS: BP 129/65; TEMP 97.5; O2SAT 97
[2025-01-02 20:14] VITALS: BP 151/61; TEMP 97.5; O2SAT 97
[2025-01-03 03:57] VITALS: BP 149/64; TEMP 97.3; O2SAT 97
[2025-01-03 07:07] LABS: PLATELET COUNT, AUTOMATED 343 10^3/uL (150-450)
[2025-01-03 07:33] LABS: ALT/SGPT 25.0 U/L (7.0-40); AST/SGOT 42.0 U/L (<34); CALCIUM LEVEL 9.4 MG/DL (8.3-10.6); CARBON DIOXIDE LEVEL 25.0 MMOL/L (20-31); CHLORIDE LEVEL 110.0 MMOL/L (98-107); CREATININE FOR GFR 1.95 MG/DL (0.70-1.30); GLOMERULAR FILTRATION RATE 32.9 (>35); POTASSIUM SERUM 4.3 MMOL/L (3.5-5.1); SODIUM LEVEL 146.0 MMOL/L (136-145)
[2025-01-03] MEDS: PANTOPRAZOLE 40MG TAB PO SCH (21:30)
[2025-01-04 06:14] VITALS: BP 135/64; TEMP 97.5; O2SAT 97
[2025-01-04 07:26] LABS: PLATELET COUNT, AUTOMATED 357 10^3/uL (150-450)
[2025-01-04 07:56] LABS: ALT/SGPT 31.0 U/L (7.0-40); AST/SGOT 51.0 U/L (<34); CALCIUM LEVEL 9.0 MG/DL (8.3-10.6); CARBON DIOXIDE LEVEL 23.0 MMOL/L (20-31); CHLORIDE LEVEL 111.0 MMOL/L (98-107); CREATININE FOR GFR 2.09 MG/DL (0.70-1.30); GLOMERULAR FILTRATION RATE 30.3 (>35); POTASSIUM SERUM 4.6 MMOL/L (3.5-5.1); SODIUM LEVEL 147.0 MMOL/L (136-145)
[2025-01-04] MEDS: D5W 1,000 ML IV SCH (09:21)
[2025-01-04 20:00] VITALS: BP 118/56; TEMP 97.2; O2SAT 99
[2025-01-05 04:00] VITALS: BP 130/59; TEMP 97.5; O2SAT 98
[2025-01-05 08:10] VITALS: BP 132/60
[2025-01-05] MEDS ORDERED: SPIR12.9 INH (11:50)
== END 2025-01-05 13:43 | DRG 445 ==
LOC: M ED 17:35 → M ED INP 12-30 10:44 → M MSPAV 12-30 17:04
PROVIDERS: ADMIT Internal Medicine; ATTEND General Practice
DX: K80.50 Calculus of bile duct without cholangitis or cholecystitis without obstruction (principal); N17.9 Acute kidney failure, unspecified; I50.22 Chronic systolic (congestive) heart failure; I13.0 Hypertensive heart and chronic kidney disease with heart failure and stage 1 through stage 4 chronic kidney disease, or unspecified chronic kidney disease; N18.4 Chronic kidney disease, stage 4 (severe); E87.0 Hyperosmolality and hypernatremia; E11.22 Type 2 diabetes mellitus with diabetic chronic kidney disease; J44.9 Chronic obstructive pulmonary disease, unspecified; F03.90 Unspecified dementia, unspecified severity, without behavioral disturbance, psychotic disturbance, mood disturbance, and anxiety; D63.8 Anemia in other chronic diseases classified elsewhere; D50.9 Iron deficiency anemia, unspecified; K76.0 Fatty (change of) liver, not elsewhere classified; I25.10 Atherosclerotic heart disease of native coronary artery without angina pectoris; E78.5 Hyperlipidemia, unspecified; F17.200 Nicotine dependence, unspecified, uncomplicated; I25.5 Ischemic cardiomyopathy; E88.09 Other disorders of plasma-protein metabolism, not elsewhere classified; N40.1 Benign prostatic hyperplasia with lower urinary tract symptoms; K22.70 Barrett's esophagus without dysplasia; R53.1 Weakness; Z95.1 Presence of aortocoronary bypass graft; K21.9 Gastro-esophageal reflux disease without esophagitis; E87.6 Hypokalemia; Z92.3 Personal history of irradiation; Z85.46 Personal history of malignant neoplasm of prostate; Z85.51 Personal history of malignant neoplasm of bladder; I25.2 Old myocardial infarction; Z79.899 Other long term (current) drug therapy; H40.9 Unspecified glaucoma

== ENCOUNTER → 2025-01-07 | Outpatient (REF) ==
[~2025-01-07] MED LIST changes: +ALBU8.5H INH; +ATOR80TA59 PO; +BUDE10.7 IH; +CARV3.12 PO; +FERR325T3 PO; +FOLI1TAB11 PO; +HYDR-3490 PO; +ISOS1TAB35 PO; +LANTINJ4 SC; +PANT40TA29 PO; +SPIR12.9 INH; +TAMS-18 PO
[2025-01-07 13:17] LABS: PLATELET COUNT, AUTOMATED 357 10^3/uL (150-450)
[2025-01-07 13:23] LABS: ESTIMATED AVERAGE GLUCOSE 117.0 MG/DL (60-110)
[2025-01-07 13:42] LABS: CALCIUM LEVEL 8.9 MG/DL (8.3-10.6); CARBON DIOXIDE LEVEL 23.0 MMOL/L (20-31); CHLORIDE LEVEL 109.0 MMOL/L (98-107); CREATININE FOR GFR 2.03 MG/DL (0.70-1.30); GLOMERULAR FILTRATION RATE 31.3 (>35); POTASSIUM SERUM 5.4 MMOL/L (3.5-5.1); SODIUM LEVEL 143.0 MMOL/L (136-145)
== END ==
PROVIDERS: ATTEND Physician Assistant
DX: E11.9 Type 2 diabetes mellitus without complications (principal)

== ENCOUNTER → 2025-01-08 | Outpatient (REF) | LOC: M PLAIMG 12:43 | PROVIDERS: ATTEND Physician Assistant | DX: M25.562 Pain in left knee (principal); Z96.652 Presence of left artificial knee joint ==

== ENCOUNTER → 2025-01-09 | Outpatient (REF) ==
[2025-01-09 10:55] LABS: PLATELET COUNT, AUTOMATED 310 10^3/uL (150-450)
[2025-01-09 11:16] LABS: ALT/SGPT 15.0 U/L (7.0-40); AST/SGOT 25.0 U/L (<34); CALCIUM LEVEL 8.4 MG/DL (8.3-10.6); CARBON DIOXIDE LEVEL 20.0 MMOL/L (20-31); CHLORIDE LEVEL 110.0 MMOL/L (98-107); CREATININE FOR GFR 1.82 MG/DL (0.70-1.30); GLOMERULAR FILTRATION RATE 35.7 (>35); POTASSIUM SERUM 4.4 MMOL/L (3.5-5.1); SODIUM LEVEL 142.0 MMOL/L (136-145)
[2025-01-09 11:16] LABS: ERYTHROCYTE SEDIMENTATION RATE 30 mm/hr (0-20)
[2025-01-09 11:20] LABS: C REACTIVE PROTEIN QUANTITATIV 13.78 MG/DL (<1.0)
== END ==
PROVIDERS: ATTEND Physician Assistant
DX: E87.6 Hypokalemia (principal)

== ENCOUNTER → 2025-01-14 | Outpatient (REF) | payer MEDICARE ==
[2025-01-14 11:58] LABS: PLATELET COUNT, AUTOMATED 405 10^3/uL (150-450)
[2025-01-14 12:29] LABS: CALCIUM LEVEL 8.9 MG/DL (8.3-10.6); CARBON DIOXIDE LEVEL 22.0 MMOL/L (20-31); CHLORIDE LEVEL 109.0 MMOL/L (98-107); CREATININE FOR GFR 1.56 MG/DL (0.70-1.30); GLOMERULAR FILTRATION RATE 43.0 (>35); MAGNESIUM LEVEL 1.6 MG/DL (1.8-2.4); PHOSPHORUS LEVEL 2.9 MG/DL (2.4-5.1); POTASSIUM SERUM 4.4 MMOL/L (3.5-5.1); SODIUM LEVEL 143.0 MMOL/L (136-145)
[2025-01-14 12:34] LABS: CALCIUM LEVEL 8.9 MG/DL (8.3-10.6); CARBON DIOXIDE LEVEL 22.0 MMOL/L (20-31); CHLORIDE LEVEL 109.0 MMOL/L (98-107); CREATININE FOR GFR 1.57 MG/DL (0.70-1.30); GLOMERULAR FILTRATION RATE 42.7 (>35); POTASSIUM SERUM 4.4 MMOL/L (3.5-5.1); SODIUM LEVEL 143.0 MMOL/L (136-145)
[2025-01-14 19:03] LABS: APPEARANCE, URINE MANUAL HAZY (CLEAR); COLOR, URINE MANUAL YELLOW (YELLOW)
[2025-01-14 19:04] LABS: PH,URINE MAN 5.0 UNITS (5.0 - 7.0); SPECIFIC GRAVITY,URINE MANUAL 1.020 (1.002-1.035)
[2025-01-14 19:05] LABS: BILIRUBIN, URINE MANUAL NEGATIVE (NEGATIVE); BLOOD URINE MANUAL POSITIVE (NEGATIVE); GLUCOSE, URINE (UA) MANUAL NEGATIVE (NEGATIVE); KETONE, URINE MANUAL NEGATIVE (NEGATIVE); LEUKOCYTE ESTERASE, URINE MAN POSITIVE (NEGATIVE); NITRITE, URINE MANUAL NEGATIVE (NEGATIVE); PROTEIN, URINE MANUAL 2+ mg/dL (NEGATIVE); UROBILINOGEN, URINE MANUAL NORMAL (NORMAL)
[2025-01-14 19:18] LABS: AMORPHOUS SEDIMENT, URINE SMALL AMOUNT (NEGATIVE); BACTERIA, URINE NONE SEEN; MUCUS, URINE MOD AMOUNT (NEGATIVE); RBC, URINE 30-40 /hpf (0-3); SQUAMOUS EPITHELIAL CELL URINE SMALL AMOUNT /hpf (SMALL AMT); TRANSITIONAL EPI CELLS, URINE MOD AMOUNT /hpf
== END ==
PROVIDERS: ATTEND Physician Assistant
DX: E11.9 Type 2 diabetes mellitus without complications (principal); I10 Essential (primary) hypertension

== ENCOUNTER → 2025-01-28 | Outpatient (REF) ==
[2025-01-28 12:44] LABS: PLATELET COUNT, AUTOMATED 356 10^3/uL (150-450)
== END ==
PROVIDERS: ATTEND Physician Assistant
DX: D64.9 Anemia, unspecified (principal)

== ENCOUNTER → 2025-02-02 | Outpatient (REF) ==
[2025-02-02 12:52] LABS: PLATELET COUNT, AUTOMATED 321 10^3/uL (150-450)
[2025-02-02 13:29] LABS: CALCIUM LEVEL 8.8 MG/DL (8.3-10.6); CARBON DIOXIDE LEVEL 23.0 MMOL/L (20-31); CHLORIDE LEVEL 105.0 MMOL/L (98-107); CREATININE FOR GFR 1.7 MG/DL (0.70-1.30); GLOMERULAR FILTRATION RATE 38.8 (>35); POTASSIUM SERUM 5.1 MMOL/L (3.5-5.1); SODIUM LEVEL 139.0 MMOL/L (136-145)
== END ==
PROVIDERS: ATTEND Physician Assistant
DX: E11.9 Type 2 diabetes mellitus without complications (principal)

== ENCOUNTER 2025-02-09 15:28 | Outpatient (CLI) | payer MEDICARE, BC ==
[~2025-02-09] VITALS: Ht 180.3 cm; Wt 80.0 kg
[~2025-02-09 15:28] MED LIST changes: +ALBUTEROL SULFATE 2.5 MG/0.5 ML INH CONCENTRATE NEB SOLN INH PRN; +EPINEPHrine INJ 1 MG/ML 1ML AMP IM PRN; +diphenhydrAMINE 50 MG/ML VIAL IV PRN
[2025-02-09] MEDS ORDERED: NS (Normal Saline) 0.9% 1,000 ML IV SCH (15:30)
[2025-02-09 15:40] VITALS: BP 128/56; O2SAT 96
[2025-02-09] MEDS: FERRIC CARBOXYMALTOSE 750 MG (VIAL MATE) IN 100ML NS IV ONE (15:59)
[2025-02-09 16:45] VITALS: BP 149/64; O2SAT 98
== END 2025-02-09 17:00 | disposition home or self-care (01) ==
LOC: M INFU 15:28
PROVIDERS: ATTEND Internal Medicine Nephrology
DX: D64.9 Anemia, unspecified (principal)
CPT/HCPCS: 96365; J1439

== ENCOUNTER → 2025-02-11 | Outpatient (REF) ==
[~2025-02-11] MED LIST changes: -ALBUTEROL SULFATE 2.5 MG/0.5 ML INH CONCENTRATE NEB SOLN INH PRN; -EPINEPHrine INJ 1 MG/ML 1ML AMP IM PRN; -diphenhydrAMINE 50 MG/ML VIAL IV PRN
[2025-02-11 11:52] LABS: PLATELET COUNT, AUTOMATED 445 10^3/uL (150-450)
== END ==
PROVIDERS: ATTEND Physician Assistant
DX: D64.9 Anemia, unspecified (principal)

== ENCOUNTER 2025-02-16 15:52 | Outpatient (CLI) | payer MEDICARE, BC ==
[~2025-02-16] VITALS: Ht 177.8 cm; Wt 80.0 kg
[2025-02-16 15:45] VITALS: BP 146/69; O2SAT 97
[~2025-02-16 15:52] MED LIST changes: +ALBUTEROL SULFATE 2.5 MG/0.5 ML INH CONCENTRATE NEB SOLN INH PRN; -BACTDSTA PO; +EPINEPHrine INJ 1 MG/ML 1ML AMP IM PRN; +NS (Normal Saline) 0.9% 1,000 ML IV SCH; +SULF-8 PO; +diphenhydrAMINE 50 MG/ML VIAL IV PRN
[2025-02-16] MEDS: FERRIC CARBOXYMALTOSE 750 MG (VIAL MATE) IN 100ML NS IV ONE (15:53)
[2025-02-16 16:25] VITALS: BP 166/74; O2SAT 96
== END 2025-02-16 16:30 | disposition home or self-care (01) ==
LOC: M INFU 15:52
PROVIDERS: ATTEND Internal Medicine Nephrology
DX: D64.9 Anemia, unspecified (principal)
CPT/HCPCS: 96365; J1439

== ENCOUNTER → 2025-02-25 | Outpatient (REF) ==
[~2025-02-25] MED LIST changes: -ALBUTEROL SULFATE 2.5 MG/0.5 ML INH CONCENTRATE NEB SOLN INH PRN; -EPINEPHrine INJ 1 MG/ML 1ML AMP IM PRN; -NS (Normal Saline) 0.9% 1,000 ML IV SCH; -diphenhydrAMINE 50 MG/ML VIAL IV PRN
[2025-02-25 14:14] LABS: PLATELET COUNT, AUTOMATED 322 10^3/uL (150-450)
== END ==
PROVIDERS: ATTEND Physician Assistant
DX: D64.9 Anemia, unspecified (principal)

== ENCOUNTER → 2025-03-11 | Outpatient (REF) ==
[2025-03-11 18:04] LABS: PLATELET COUNT, AUTOMATED 250 10^3/uL (150-450)
== END ==
PROVIDERS: ATTEND Physician Assistant
DX: D64.9 Anemia, unspecified (principal)

== ENCOUNTER → 2025-03-23 | Outpatient (REF) ==
[~2025-03-23] MED LIST changes: +ACET-683 PO; +ACET1TAB55 PO; +ALLO100T PO; +BISA10SU4 PR; +DULO1CAP4 PO; +FLEEENE12 PR; +FLUT1BLS8 IH; +GLUC1VIA14 IM; +LIDO76.52 TOP; +MILKSUS3 PO; +TAMS1CAP17 PO; -TRAV04OPD OS; +TRAV04OPD OU; +VENTAER INH
== END ==
PROVIDERS: ATTEND Physician Assistant
DX: D64.9 Anemia, unspecified (principal); Z53.8 Procedure and treatment not carried out for other reasons